=== PATIENT | female | born 1965 | race Caucasian/White ===

== ENCOUNTER 2023-04-10 07:43 | Outpatient (AMB) | payer MEDICAID, SELFPAY ==
--- NOTE | 2023-04-10 08:00 | A.OFFVIS_ITS ---
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 Nutrition Services Associate Name: Kt([id number]) Allergies No Known Allergies Allergy (Verified 04/10/23 08:04) HPI HPI Comments History of Present Illness Details 58 y/o female patient presents for new i n-person visit for sleep consultation. vice president of customer service Kt ID # [id number] utilized. Pt reports difficulty falling asleep and staying sleep. She snores loudly, wakes up gasping and has non rested sleep. She wakes up tired, fatigue all day. She gained about 60 lb over the last year. Sleep questionnaire: Have you ever been diagnosed with a sleep disorder? No. Have you ever had a sleep study in the past? No. Have you ever been treated for a sleep disorder? No. Do you take medications for a sleep disorder? No. Do you snore? Yes, loudly. Do you wake up gasping at night? Yes. Do you have episodes of apneas? Yes. If yes, are they witnessed? Yes, her mother witnessed. Do you have episodes of nocturnal chest pain or dyspnea? Yes, sometimes. Do you have difficulty initiating sleep? Yes. Do you have difficulty maintaining sleep? Yes. Do you wake up tired? Yes. Do you have headaches upon awakening? Yes, sometimes. Do you wake up with dry mouth or throat? Yes. Do you have GERD? Yes. Do you have nocturia? Just once. Do you have nocturnal leg cramps? No. Do you have symptoms of restless legs? Yes, tingling. Do you act out your dreams? Yes, sometimes yells. Sleep hygiene questionnaire: What is your usual sleep routine? Usual bedtime is at 10-11 pm; Usual wake up time is at 4:30 am. Do you take naps? No. Is your sleep environment cool, dark, and quiet? Yes. Do you exercise? No. Do you take caffeine or other stimulants? Yes, coffee and soda. Do you use electronics in bed? Yes. What is your work schedule? 6 -11:30 am. Hypersomnolence questionnaire: Do you have daytime tiredness or fatigue? Yes. Do you easily fall asleep when inactive? Yes. Have you ever had episodes of sudden weakness? No. Have you ever had episodes of sudden weakness associated with strong emotions? No. PFSH Social History Household Members: None Housing: Apartment Alcohol intake: never Patient Tobacco Use Status: Never used Tobacco Review of Systems Const All systems reviewed & are unremarkable except as noted in HPI and below ENT Reports Normal hearing present Neuro Reports Normal hearing present Physical Exam Vital Signs: Last Vital Signs Pulse 88 04/10/23 08:01 BP 130/82 04/10/23 08:01 Pulse Ox 95 04/10/23 08:01 Oxygen Delivery Method Room Air 04/10/23 08:01 BMI result Body Mass Index 39.0 Const General: cooperative and tired appearing Nutritional Appearance: obese Orientation/consciousness: patient oriented x3 Limitations: language barrier Neck Neck: Yes full ROM and Yes supple Resp Effort & Inspection: normal respiratory effort and able to speak in complete sentences Neuro General: patient oriented x3, gait normal and moves all extremities Cranial nerves: Yes Bilaterally intact EOM present, Yes Normal facial strength present, Yes Midline tongue present, Yes Normal hearing present, Yes Ability to bilaterally rotate head present and Yes Ability to bilaterally elevate shoulders present Cognition (Neuro): normal cognition Gait exam (Neuro): Normal gait present Motor exam (neuro): 5/5 motor strength present throughout, Pronator motor function not present and no tremor noted Psych Appearance: grossly normal Mental Status: mental status grossly normal Speech and movement: Normal speech and movement present Affect: normal affect Attitude: cooperative Assessment & Plan Assessment & Plan (1) Obese: Code(s): E66.9 - Obesity, unspecified (2) Excessive daytime sleepiness: Code(s): G47.19 - Other hypersomnia (3) Loud snoring: Code(s): R06.83 - Snoring Plan Pt is advised to undergo home sleep study to assess for sleep apnea. Will f/u with pt after study to discuss results and appropriate treatment options. Sleep hygiene education provided. Limit soda intake in the evening, and electronic use. Increase physical activity and wt reduction advised. Pt to call with any worsening concerns or questions. Orders: Orders RT home sleep study Today E66.9 - Obesity, unspecified, G47.19 - Other hypersomnia, R06.83 - Snoring Coding Level of Care Code New Pt Level 3 (38767) Diagnoses Obese E66.9 Excessive daytime sleepiness G47.19 Loud snoring R06.83
[2023-04-10 08:01] VITALS: BP 130/82; PULSE 88; O2SAT 95; BMI 39.0
== END 2023-04-10 08:33 | disposition home or self-care (01) ==
PROVIDERS: Visit Provider Nurse Practitioner Family
DX: E66.9 Obesity, unspecified (principal); G47.19 Other hypersomnia; R06.83 Snoring
CPT/HCPCS: 99203

== ENCOUNTER → 2023-04-10 07:43 | Outpatient (BNVA) | payer MEDICAID, SELFPAY | PROVIDERS: Visit Provider Nurse Practitioner Family | DX: G47.19 Other hypersomnia (principal); R06.83 Snoring; E66.9 Obesity, unspecified; Z68.39 Body mass index [BMI] 39.0-39.9, adult | CPT/HCPCS: 99212 ==

== ENCOUNTER → 2023-05-27 07:17 | Outpatient (BNV) | payer MEDICAID, SELFPAY | PROVIDERS: PCP Physician Assistant Medical; Visit Provider Psychiatry & Neurology Neurology | DX: G47.33 Obstructive sleep apnea (adult) (pediatric) (principal) | CPT/HCPCS: 95806 ==

== ENCOUNTER → 2023-05-27 13:02 | Outpatient (REF) | payer MEDICAID, SELFPAY | LOC: HO.SL 13:02 | PROVIDERS: PCP Physician Assistant Medical; Visit Provider Nurse Practitioner Family | DX: G47.33 Obstructive sleep apnea (adult) (pediatric) (principal); R06.83 Snoring; G47.19 Other hypersomnia; E66.9 Obesity, unspecified | CPT/HCPCS: 95806; 95811 ==

== ENCOUNTER → 2023-07-01 19:30 | Outpatient (REF) | payer MEDICAID, SELFPAY | LOC: HO.SL 19:30 | PROVIDERS: PCP Physician Assistant Medical; Visit Provider Nurse Practitioner Family | DX: G47.33 Obstructive sleep apnea (adult) (pediatric) (principal) | CPT/HCPCS: 95811 ==

== ENCOUNTER → 2023-07-01 22:59 | Outpatient (BNV) | payer MEDICAID, SELFPAY | PROVIDERS: PCP Physician Assistant Medical; Visit Provider Psychiatry & Neurology Neurology | DX: G47.33 Obstructive sleep apnea (adult) (pediatric) (principal) | CPT/HCPCS: 95811 ==

== ENCOUNTER 2023-09-08 10:55 | Outpatient (AMB) | payer MEDICAID, SELFPAY ==
--- NOTE | 2023-09-08 10:55 | MHC.OFFVIS ---
Vital Signs 09/08/23 10:56 Height 5 ft 2 in Weight 215 lb BMI 39.3 BP 154/82 H Blood Pressure Location Rt brachial Position Sitting Pulse 87 Pulse Source Pulse Oximeter Pulse Oximetry (%) 95 Oxygen Delivery Method Room Air Intake Visit Reasons: 4M PATRICK - CONF w/Chic. Location Intake Note: Patient presents for 4 month follow up. Allergies No Known Allergies Allergy (Verified 09/08/23 10:58) HPI Comments Details: 58 y/o female patient presents for follow up of sleep study. Certified watch train inspector Destini Harris helped for this visit. The home sleep study result was significant for a severe degree of sleep apnea. The AHI was 34/hr and oxygen satish was 75%. She underwent titration study. The CPAP compliance and therapy response (08/08/23-09/06/23) reviewed. She is on CPAP at [id number]. The usage days 80 % and the average usage hours 4 hrs 20 min. The residual AHI was 1.6/hr. Pt reports she sleeps well with CPAP, about 7 hrs, rested, and her daytime sleepiness has improved a lot. She uses nasal mask, but wants to try full face mask. [facility] Social History (Reviewed 09/08/23 @ 10:58 by Destini Harris COUNT INCLUDES THE [facility]) Household Members: None Housing: Apartment Alcohol intake: never Patient Tobacco Use Status: Never used Tobacco Review of Systems Const All systems reviewed & are unremarkable except as noted in HPI and below ENT Reports Normal hearing present Neuro Reports Normal hearing present Physical Exam Vital Signs: Last Vital Signs Pulse 87 09/08/23 10:56 BP 154/82 H 09/08/23 10:56 Pulse Ox 95 09/08/23 10:56 Oxygen Delivery Method Room Air 09/08/23 10:56 BMI result Body Mass Index 39.3 Const General: cooperative Nutritional Appearance: obese Orientation/consciousness: patient oriented x3 Limitations: language barrier Neck Neck: Yes full ROM and Yes supple Resp Effort & Inspection: normal respiratory effort and able to speak in complete sentences Neuro General: patient oriented x3 and gait normal Cranial nerves: Yes Bilaterally intact EOM present, Yes Normal facial strength present, Yes Midline tongue present, Yes Normal hearing present, Yes Ability to bilaterally rotate head present and Yes Ability to bilaterally elevate shoulders present Cognition (Neuro): normal cognition Gait exam (Neuro): Normal gait present Motor exam (neuro): 5/5 motor strength present throughout, Pronator motor function not present and no tremor noted Psych Appearance: grossly normal Mental Status: mental status grossly normal Speech and movement: Normal speech and movement present Affect: normal affect Attitude: cooperative Assessment & Plan Assessment & Plan (1) PATRICK (obstructive sleep apnea): Comment: Severe degree of sleep apnea. The AHI was 34/hr and oxygen satish was 75% Code(s): G47.33 - Obstructive sleep apnea (adult) (pediatric) Category: Medical Plan Advised patient to continue to use CPAP at [id number] as patient experiences good clinical effects, better quality sleep and daytime sleepiness has improved. Stressed compliance, use CPAP nightly and more than 4 hrs. Wt reduction advised. Coding Level of Care Code Est Pt Level 3 (61038) Diagnoses PATRICK (obstructive sleep apnea) G47.33
[2023-09-08 10:56] VITALS: BP 154/82; PULSE 87; O2SAT 95; BMI 39.3
== END 2023-09-08 11:25 | disposition home or self-care (01) ==
PROVIDERS: PCP Physician Assistant Medical; Visit Provider Nurse Practitioner Family
DX: G47.33 Obstructive sleep apnea (adult) (pediatric) (principal)
CPT/HCPCS: 99213

== ENCOUNTER → 2023-09-08 10:55 | Outpatient (BNVA) | payer MEDICAID, SELFPAY | PROVIDERS: PCP Physician Assistant Medical; Visit Provider Nurse Practitioner Family | DX: G47.33 Obstructive sleep apnea (adult) (pediatric) (principal) | CPT/HCPCS: 99212 ==

== ENCOUNTER 2024-03-29 12:52 | Outpatient (AMB) | payer MEDICAID, SELFPAY ==
--- NOTE | 2024-03-29 12:58 | MHC.OFFVIS ---
Vital Signs 03/29/24 13:00 Height 5 ft 2 in Weight 212 lb BMI 38.8 BP 136/74 Blood Pressure Location Rt brachial Position Sitting Intake Visit Reasons: 6 mnts f/u for PATRICK Intake Note: Patient presents for 6 month follow up Allergies No Known Allergies Allergy (Verified 03/29/24 13:01) Medication List - Last Reconciled 03/29/24 by Oriana Morel PA-C amlodipine 5 mg PO DAILY cholecalciferol (vitamin D3) 25 mcg PO DAILY lisinopril 20 mg PO DAILY HPI Comments Details: 59 y/o female patient presents for follow up of sleep study. Daughter is interpreting for her. The CPAP compliance and therapy response (12/30/2023- 03/28/2024). She is on CPAP at [id number]. The usage days 14% and the average usage hours 1 hrs 21 min. The residual AHI was 9.0. Pt reports she slept well with CPAP, about 7 hrs, rested, and her daytime sleepiness had improved a lot. She uses full face mask and liked the mask, but feels she is being suffocated because of the pressures. She just had r. knee surgery Jan 25 at [facility] and completed PT 2023. Now she is not able to use the CPAP but only 2 - 3 hours a night, as she is on pain medications through the night. Tramadol 50mg PO Daily Oxycodone 5mg PO Bedtime Tylenol 500mg PO TID She denies headaches, her mood is good, diet is good. She cleans the mask, changes out filters, uses distilled water in the reservoir as needed. Pressures are too high for her and would like to have a mask fitting. Discussed compliance due to hypertension and quality of sleep. [facility] Surgical History (Updated 03/29/24 @ 13:01 by YOANDY Lugo) H/O knee surgery Social History Household Members: None Housing: Apartment Alcohol intake: never Patient Tobacco Use Status: Never used Tobacco Physical Exam Vital Signs: Last Vital Signs BP 136/74 03/29/24 13:00 BMI result Body Mass Index 38.8 Assessment & Plan Assessment & Plan (1) PATRICK (obstructive sleep apnea): Comment: Severe degree of sleep apnea. The AHI was 34/hr and oxygen satish was 75% Code(s): G47.33 - Obstructive sleep apnea (adult) (pediatric) Category: Medical Plan Will send patient for mask fitting as patient continues to have trouble with mask. Coding Level of Care Code Est Pt Level 3 (70206) Diagnoses PATRICK (obstructive sleep apnea) G47.33
[2024-03-29 13:00] VITALS: BP 136/74; BMI 38.8
== END 2024-03-29 13:39 | disposition home or self-care (01) ==
PROVIDERS: PCP Physician Assistant Medical; Visit Provider Physician Assistant Medical
DX: G47.33 Obstructive sleep apnea (adult) (pediatric) (principal)
CPT/HCPCS: 99213

== ENCOUNTER → 2024-03-29 12:52 | Outpatient (BNVA) | payer MEDICAID, SELFPAY | PROVIDERS: PCP Physician Assistant Medical; Visit Provider Physician Assistant Medical | DX: G47.33 Obstructive sleep apnea (adult) (pediatric) (principal) | CPT/HCPCS: 99212 ==

== ENCOUNTER 2024-07-01 09:46 | Outpatient (AMB) | payer MEDICAID, SELFPAY ==
--- NOTE | 2024-07-01 09:56 | MHC.OFFVIS ---
Vital Signs 07/01/24 09:57 Height 5 ft 2 in Weight 217 lb BMI 39.7 BP 152/78 H Blood Pressure Location Lt brachial Position Sitting Pulse 87 Pulse Source Pulse Oximeter Pulse Oximetry (%) 95 Oxygen Delivery Method Room Air Intake Visit Reasons: Follow Up 2 mo Consumer Lending Manager Required: Yes Consumer Lending Manager Name: Consumer Lending Manager tablet used Accompanied by: Self / Same As Patient Allergies No Known Allergies Allergy (Verified 07/01/24 09:59) HPI Comments Details: 59 y/o female patient presents for follow up of sleep study. Consumer Lending Manager on Ipad The CPAP compliance and therapy response (03/21/2025- 06/25/2024). She is on CPAP at [id number]. The usage days 9 and the average usage hours 1 hrs 26 min. Leaks median 6.0cmH20 and AHI is 5.3 Pt reports she slept well with CPAP, about 7 hrs, rested, and her daytime sleepiness had improved a lot. She uses full face mask and liked the mask, but feels she is being suffocated because of the pressures. She now has the nose pillows and would like to go to a smaller face mask. She denies headaches, her mood is good, diet is good. She cleans the mask daily, changes out filters, uses distilled water in the reservoir as needed. Pressures are too high for her and would like to have a mask fitting. Discussed compliance due to hypertension and the need for good quality of sleep nightly. Her BP is elevated today to 152/78, on two medications Amlodipine 5mg and Lisinopril 20mg. Since her knee surgery in Mar, 2024, she has been having trouble with the CPAP machine as she is getting up several times a night for the bathroom. Says her mood is good, and would like to address weight at next appt as she is always tired. [facility] Surgical History H/O knee surgery Social History Household Members: None Housing: Apartment Alcohol intake: never Patient Tobacco Use Status: Never used Tobacco Review of Systems Const All systems reviewed & are unremarkable except as noted in HPI and below ENT Reports Normal hearing present Neuro Reports Normal hearing present Physical Exam Vital Signs: Last Vital Signs Pulse 87 07/01/24 09:57 BP 152/78 H 07/01/24 09:57 Pulse Ox 95 07/01/24 09:57 Oxygen Delivery Method Room Air 07/01/24 09:57 BMI result Body Mass Index 39.7 Const General: cooperative Nutritional Appearance: obese Orientation/consciousness: patient oriented x3 Limitations: language barrier Neck Neck: Yes full ROM and Yes supple Resp Effort & Inspection: normal respiratory effort and able to speak in complete sentences Neuro General: patient oriented x3 and gait normal Cranial nerves: Yes Bilaterally intact EOM present, Yes Normal facial strength present, Yes Midline tongue present, Yes Normal hearing present, Yes Ability to bilaterally rotate head present and Yes Ability to bilaterally elevate shoulders present Cognition (Neuro): normal cognition Gait exam (Neuro): Normal gait present Motor exam (neuro): 5/5 motor strength present throughout, Pronator motor function not present and no tremor noted Psych Appearance: grossly normal Mental Status: mental status grossly normal Speech and movement: Normal speech and movement present Affect: normal affect Attitude: cooperative Results Reviewed Results Reviewed: The CPAP compliance and therapy response (03/21/2025- 06/25/2024). She is on CPAP at [id number]. The usage days 9 and the average usage hours 1 hrs 26 min. Leaks median 6.0cmH20 and AHI is 5.3 Assessment & Plan Assessment & Plan (1) HTN (hypertension): Code(s): I10 - Essential (primary) hypertension Category: Medical Qualifiers: Hypertension type: primary hypertension Qualified Code(s): I10 - Essential (primary) hypertension (2) PATRICK (obstructive sleep apnea): Comment: Severe degree of sleep apnea. The AHI was 34/hr and oxygen satish was 75% Code(s): G47.33 - Obstructive sleep apnea (adult) (pediatric) Category: Medical Plan PATRICK on CPAP Will send her for a nose mask fitting as patient continues to have trouble with mask. Fatigue will refer her to weight management next visit if patient is amenable. Medications: New [Blood pressure monitor] As directed 1 ea 0RF I10 - Essential (primary) hypertension [Blood Pressure cuff] As directed 1 ea 0RF PATRICK G47.33 - Obstructive sleep apnea (adult) (pediatric), I10 - Essential (primary) hypertension Patient Instructions: Emphasized strict compliance to CPAP use must sleep with mask 4-6 hours at a minimum per night as patient has HTN. The #1 modifiable RF for CV events is HTN. Diet and Exercise along with taking her BP meds on time is explained. Coding Level of Care Code Est Pt Level 3 (63808) Diagnoses Primary hypertension I10 Hypertension type: primary hypertension PATRICK (obstructive sleep apnea) G47.33 Time Spent (min) 30
[2024-07-01 09:57] VITALS: BP 152/78; PULSE 87; O2SAT 95; BMI 39.7
--- OUTSIDE RECORDS SUMMARY | 2024-07-01 10:27 | XMS_ITS | Clinical Summary ---
Author Organization [facility] Address [address] [place] [phone] Phone Care Team Providers Care Aoc Operations Intelligence Officer Name Role Phone Raf Pedroza Primary Care Provider [phone] Allergies No known active allergies Medications acetaminophen (TYLENOL) 325 mg tablet Take 1 tablet (325 mg total) by mouth every 6 (six) hours if needed for mild pain. Active amLODIPine (NORVASC) 5 mg tablet Take 1 tablet (5 mg total) by mouth 1 (one) time each day. Active aspirin 325 mg tablet Take 1 tablet (325 mg total) by mouth 2 (two) times a day. Active docusate sodium (COLACE) 100 mg capsule Take 1 capsule (100 mg total) by mouth 2 (two) times a day. Active lisinopriL (PRINIVIL,ZESTR IL) 20 mg tablet Take 1 tablet (20 mg total) by mouth 1 (one) time each day. Active oxyCODONE (ROXICODONE) 5 mg immediate release tablet 1 tablet (5 mg total) every 4 (four) hours if needed for severe pain. Max Daily Amount: 30 mg Active pantoprazole (PROTONIX) 40 mg EC tablet Take 1 tablet (40 mg total) by mouth 1 (one) time each day before breakfast. Do not crush, chew, or split. Active traMADoL (ULTRAM) 50 mg tablet Take 1 tablet (50 mg total) by mouth every 6 (six) hours if needed for severe pain. Max Daily Amount: 200 mg Active cholecalciferol (VITAMIN D-3) 25 mcg (1,000 unit) tablet Take 1 tablet (1,000 Units total) by mouth 1 (one) time each day. Active meloxicam (MOBIC) 15 mg tablet Take 1 tablet (15 mg total) by mouth 1 (one) time each day. Active Social History Tobacco Use Types Packs/Day Years Used Date Smoking Tobacco: Never Assessed Comments Unknown Sex and Gender Information Value Date Recorded Sex Assigned at Female 06/29/2024 11:14 AM EST Legal Sex Female 3:51 AM EST Gender Identity Female 06/29/2024 11:14 AM EST Sexual Orientation Straight 06/29/2024 11 :14 AM EST Plan of Treatment Upcoming Encounters Date Type Department Care Team (Late st Contact Info) Description 07/11/2024 10:30 AM EST Appointment [facility] [address] [phone] Health Maintenance Due Date Last Done Comments DTaP,Tdap,and Td Vaccines (1 - Tdap) 1986 Hepatitis B Vaccines (1 of 3 - 19+ 3-dose series) 1986 Cervical Cancer Screening: P ap Smear 01/07/1988 Pneumococcal Vaccine: 50+ Years (1 of 1 - PCV) 2017 Zoster Vaccines (1 of 2) 2017 Colorectal Cancer Screening: Colonoscopy 04/13/2022 Depression Screening 04/13/2022 HIV Screening 04/13/2022 Hepatitis C Screening 04/13/2022 Social Influencers of Health Screening 04/13/2022 COVID-19 Vaccine ( - 2023-2 5 season) 2024 Influenza Vaccine (#1) 2024 Breast Cancer Screening 03/05/2025 03/05/20, 01/02/2022, 12/08/2018 HIB Vaccines Aged Out No longer eligi ble based on patient's age to complete this topic HPV Vaccines Aged Out No longer eligi ble based on patient's age to complete this topic Hepatitis A Vaccines Aged Out No long er eligible based on patient's age to complete this topic IPV Vaccines Aged Out No longer eligi ble based on patient's age to complete this topic MMR Vaccines Aged Out No longer eligi ble based on patient's age to complete this topic Meningococcal ACWY Vaccine Aged Out N o longer eligible based on patient's age to complete this topic Meningococcal B Vacine Aged Out No lo nger eligible based on patient's age to complete this topic Pneumococcal Vaccine: Pediatrics (0 to 5 Years) and At-Risk Patients (6 to 64 Years) Aged Out No longer eligible b ased on patient's age to complete this topic RSV Immunization Patients Under 20 months Aged Out No longer eligible b ased on patient's age to complete this topic Varicella Vaccines Aged Out No longer eligible based on patient's age to complete this topic Procedures Procedure Name Priority Date/Time Associated Diagnosis Comments [facility] SCREENING DIGITAL Routine 03/05/2023 1:54 PM EDT Encounter for screening mammogram for malignant neoplasm of breast from Last 3 Months or Most Recently Relevant to Health Maintenance Results * [facility] SCREENING DIGITAL (03/05/2023 1:54 PM EDT) Anatomical Region Laterality Modality Mammography 03/05/2023 10:4 3 AM EDT Narrative 03/05/2023 1:54 PM EDT [facility] Diagnostic Imaging Department [address] [place] [address] Patient: ??MISSY ABDULLAHI ?/Age/Sex: 1965 - 58 - F Unit#: ??[id number] ? Location/Status: ??SPDIMAM/REG CLI ? Mnemonic/Ordering Site: ??DIGSC/SPMAM Ordering Physician: ??TATO AGUILAR MD [facility] Screening Digital - 03/05/23 - 110 Report Status:Signed EXAM: [facility] Screening Digital EXAM DATE AND TIME: 03/05/2023 11:10 AM HISTORY: ??Screening. COMPARISON: ??01/02/22, 12/08/18, 07/01/17 TECHNIQUE: Bilateral digital breast tomosynthesis was performed in the CC and MLO projections. Computer aided detection with [employer] 3D 3.1 was employed. TISSUE DENSITY: b. There are scattered areas of fibroglandular density. FINDINGS: No suspicious masses, grouped microcalcifications, or areas of architectural distortion are seen. A 13 mm oval skin lesion is again seen on the upper outer left breast. Vascular calcification is present. IMPRESSION: Stable mammographic appearance of the breasts. ??No evidence of malignancy is seen. A negative mammogram in the presence of a clinically suspicious palpable abnormality does not preclude the possibility of malignancy or alter the indications for biopsy. BI-RADS: ??Category 2: Benign RECOMMENDATION(S): 1: Routine screening mammogram BILATERAL in 1 year. Dictating Physician: ??TIARA BELLO MD Electronically Signed by: ??TIARA BELLO MD Dic Date/Time: ??03/05/23 1353 Sign date/Time: ??03/05/23 1354 Procedure Note Tiara Bello MD - 06/16/2023 [facility] Diagnostic Imaging Department [address] [place] [address] Patient: MISSY ABDULLAHI Adam OsborneB./Age/Sex: 1965 - 58 - F Unit#: [id number] Location/Status: [facility] Mnemonic/Ordering Site: [facility] Ordering Physician: TATO AGUILAR MD [facility] Screening Digital - 03/05/23 - 1109 Report Status:Signed EXAM: [facility] Screening Digital EXAM DATE AND TIME: 03/05/2023 11:10 AM HISTORY: Screening. COMPARISON: 01/02/22, 12/08/18, 07/01/17 TECHNIQUE: Bilateral digital breast tomosynthesis was performed in the CCand MLO projections. Computer aided detection with [employer] 3D 3.1was employed. TISSUE DENSITY: b. There are scattered areas of fibroglandular density. FINDINGS: No suspicious masses, grouped microcalcifications, or areas ofarchitectural distortion are seen. A 13 mm oval skin lesion is again seen on the upperouter left breast. Vascular calcification is present. IMPRESSION: Stable mammographic appearance of the breasts. No evidence of malignancyis seen. A negative mammogram in the presence of a clinically suspicious palpable abnormality does not preclude the possibility of malignancy or alter the indications for biopsy. BI-RADS: Category 2: Benign RECOMMENDATION(S): 1: Routine screening mammogram BILATERAL in 1 year. Dictating Physician: TIARA BELLO MD Electronically Signed by: TIARA BELLO MD Dic Date/Time: 03/05/23 1353 Sign date/Time: 03/05/23 135 Tato Aguilar MD IMG BI PROCEDURES Final Result from Last 3 Months or Most Recently Relevant to Health Maintenance Insurance MEDICAID - [place] Care Teams Aoc Operations Intelligence Officer Relationship Specialty Start Date End Date Raf Pedroza PA [address] [place] [phone] PCP - General Physician Cover Marker 03/18/24
--- OUTSIDE RECORDS SUMMARY | 2024-07-01 10:27 | XMS_ITS | Clinical Summary ---
Author Organization [facility] Address [address] [place] [address] Care Team Providers Care Lead Based Paint Technician Name Role Phone Ludwin Pro PA-C Primary Care Provider [phone] Source Comments PLEASE NOTE, if this patient is a minor, it may be UNLAWFUL to discuss sensitive information that is contained in these records (such as FAMILY PLANNING, MENTAL HEALTH or SUBSTANCE ABUSE) with the minor patient's parent or other person without the patient's specific authorization.[facility] Allergies No known active allergies Medications blood pressure test kit-mediumIndicati ons:Essential hypertension Check BP daily Diag: I10 99 lifetime 1 Kit 09/29/19 20 Active MISCELLANEOUS MEDICAL SUPPLY MISCIndications:Pr imary osteoarthritis of both knees by miscellaneous route once daily Dx: OA of knees, gait instability CAROL: 99 Supply: Tripod cane. 1 Each 06/04/19 24 Active meloxicam (MOBIC) 15 mg tablet Take 15 mg by mouth once daily 10/29/19 24 Active cholecalciferol, vitamin D3, 25 mcg (1,000 unit) capsuleIndications :Vitamin D deficiency Take 1 Capsule by mouth once daily 90 Capsule 1 11/05/19 24 Active oxyCODONE (ROXICODONE) 5 mg tablet Take 5 mg by mouth every 4 (four) hours as needed for pain 01/27/20 24 Active docusate sodium (COLACE) 100 mg capsule Take 100 mg by mouth 2 (two) times daily 01/27/20 24 Active pantoprazole (PROTONIX) 40 mg EC tablet Take 40 mg by mouth once daily 01/27/20 24 Active aspirin 325 mg EC tablet Take 325 mg by mouth 2 (two) times daily 01/27/20 24 Active acetaminophen (TYLENOL) 325 mg tablet Take 650 mg by mouth every 6 (six) hours as needed 01/27/20 24 Active traMADoL (ULTRAM) 50 mg tablet Take 50 mg by mouth every 6 (six) hours as needed for pain 01/27/20 24 Active amLODIPine (NORVASC) 5 mg tabletIndications: Essential hypertension Take 1 Tablet by mouth once daily 90 Tablet 1 03/14/20 24 Active lisinopriL 20 mg tabletIndications: Essential hypertension Take 1 Tablet by mouth once daily 90 Tablet 1 03/14/20 24 Active Active Problems Problem Noted Date Diagnosed Date Primary osteoarthritis of right knee 02/13/2023 Overview (02/13/2023): Referred to [facility] Vitamin D deficiency 08/09/2018 Essential hypertension 06/03/2018 Cervical cancer screening 11/30/2017 Overview (11/30/2017): 11/16/2017 [facility] Chlamydia/Gonorrhea: Negative Right shoulder tendinitis 11/12/2017 Colon cancer screening 07/29/2017 Overview (07/29/2017): 07/27/2017 [facility]- Colonoscopy Hemorrhoids found on perianal exam. Perianal skin tags found on perianal exam. Diverticulosis in the sigmoid colon and in the left colon. The examination was otherwise normal. No specimens collected. Recommended: Repeat in 10 years. Breast cancer screening 07/03/2017 Overview (07/07/2017): 07/01/2017 [facility]- Mammogram Screening Superficial oval mass within the axillary tail region of the left breast. Further assessment if this area with ultrasound is recommended. No specific mammographic evidence of breast malignancy on the right. Lack of a mammographic finding in the presence of a clinically suspicious palpable abnormality does not preclude the possibility of malignancy or alter the indications for biopsy. BI-RADS- Category 0 - incomplete needs additional imaging evaluation. 07/03/2017 [facility]- US Breast Findings consistent with sebaceous cyst in the 2:00 axis of the left breast 10 cm the nipple corresponding to the mammographic area of concern. BIRADS Category 2 Benign finding Lack of an imaging finding does not preclude the possibility of malignancy. Lack of an imaging correlate should not deter or delay biopsy of any clinically suspicious palpable finding. Chronic pain of left knee 05/26/2017 Resolved Problems Problem Noted Date Diagnosed Date Resolved Date Depression 05/26/2017 02/13/2023 Encounters Date Type Department Care Team Description 06/20/2024 3:00 PM EST Office Visit [address] [address] Ludwin Pro PA-C Cervical smear, as part of routine gynecological examination (Primary Dx); Routine Papanicolaou smear; Screening mammogram for breast cancer from Last 3 Months Immunizations Name Administration Dates Next Due Flu, Preservative Free 03/26/2022,05/26/2017 MODERNA COVID-19 VACCINE BIV ALENT, BLUE CAP, 6M+ 06/26/2022 Moderna COVID-19 Vaccine, re d cap blue label, 12+ Primary Series 07/26/2021,09/01/2020,08/03/2020 PPD 09/01/2018 TDAP 06/10/2017 ZOSTER VACCINE, RECOMBINANT (SHINGRIX) ,10/17/2020 Family History Relation Name Status Comments Father addicted to drugs Mother Alive Social History Tobacco Use Types Packs/Day Years Used Date Smoking Tobacco: Never Smokeless Tobacco: Never Tobacco Cessation:Counseling Given: No Alcohol Use Standard Drinks/Week Comments No 0 (1 standard drink = 0.6 oz pur e alcohol) Social Connections Answer Date Recorded Connectedness 1 06/20/2024 Financial Resource Strain Answer Date R ecorded Financial Resource Strain 1 2024 Stress Answer Date Recorded Stress 1 06/20/2024 Physical Activity Answer Date Recorded Physical Activity 0 01/03/2019 Food Insecurity Answer Date Recorded Food 1 06/20/2024 Transportation Needs Answer Date Record ed Transportation 1 06/20/2024 Housing Stability Answer Date Recorded Housing 1 06/20/2024 Safety and Environment Answer Date Zia rded Safety 1 11/05/2023 Utilities Answer Date Recorded Utilities 1 06/20/2024 Employment Answer Date Recorded Stress 0 12/19/2020 Comments No Sex and Gender Information Value Date Recorded Sex Assigned at Female 05/26/2017 12:42 PM PST Legal Sex Female 8:50 AM PST Gender Identity Female 05/26/2017 12:42 PM PST Sexual Orientation Straight 08/02/2018 6: 13 AM PDT Last Filed Vital Signs Vital Sign Reading Time Taken Comments Blood Pressure 138/80 03/14/2024 8:52 AM EST Pulse 88 03/14/2024 8:52 AM EST Temperature 36.9 ??C (98.4 ??F) 11/05/2023 3:43 PM ED T Respiratory Rate 16 03/14/2024 8:52 AM EST Oxygen Saturation 97% 03/14/2024 8:52 AM EST Inhaled Oxygen Concentration - - Weight 100.7 kg (222 lb) 06/20/2024 3:07 PM EST Height 149.9 cm (4' 11 ) 06/20/2024 3:07 PM EST Body Mass Index 44.84 06/20/2024 3:07 PM EST Plan of Treatment Health Maintenance Due Date Last Done Comments Dental Prophy 1965 HPV Screening 1967 Urine Drug Screen [address] CT Colonography 01/07/2012 Colonoscopy 01/07/2012 Fecal DNA 01/07/2012 Flexible Sigmoidoscopy 01/07/2012 Colorectal Cancer Screening 07/27/2018 FIT/gFOBT 07/27/2018 07/27/2017 (Lisa jolly by Outside Provider) Breast Cancer Screening (Mammogram) 03/05/2024 03/05/2023, 03/05/2023, 01/02/2022, Additional history exists [id number] ( season) 2024 06/26/2022, 07/26/2021, 09/01/2020, Additional history exists Postponed from 01/10/2024 (Patient postponement) Dental BW 11/03/2024 11/02/2023 Dental Examination 11/03/2024 11/02/2023 Dental Perio Charting 11/03/2024 11/02/2023 Tobacco Screening 11/04/2024 11/05/2023 Annual Preventive Care Visit 06/20/2025 06/20/2024, 03/14/2024, 02/13/2023, Additional history exists Diabetes Screening 03/15/2027 03/15/2024, 0 11/19/2023, 06/12/2023, Additional history exists Lipid Screening 03/15/2027 03/15/2024, 0705/2023, 06/12/2023, Additional history exists Imm-DTaP/Tdap/Td (2 - Td or Tdap) 06/10/2027 06/10/2017 Pap Smear 06/20/2027 06/20/2024, 07/0 01/2018, 11/16/2017 Dental FMX/Pano 12/31/2028 12/30/2023, 11/02/2023 Cervical Cancer Screening 06/20/2029 Pap + HPV 06/20/2029 06/20/2024, 11/16/2017 HIV Screening Completed 02/07/2020, 08/04/2018 Hepatitis C Screening Completed 02/07/2020 Imm-Zoster, Recombinant Completed 12/19/2021, 10/17 Imm-Influenza Discontinued 03/26/2022, 05/26/2017 Alcohol and Drug Screen Completed 06/20/19, 11/05/2023, 06/04/2023, Additional history exists Depression Annual Screen Completed 06/20/2024 Cervical Ablation/Cold-Knife Conization Discontinued Cervical Cryotherapy Discontinued Colposcopy Discontinued Endometrial Biopsy Discontinued Excision/Leep Discontinued HPV Genotyping Discontinued Vaginal Pap Discontinued Vulvoscopy Discontinued Goals Goal Patient Goal Type Associated Problems Recent Progress Patient-Stated? Author Blood Pressure < 140/90 Blood Pressure Essential hypertension 138/80(2023 8:52 AM EST) No Tamiko Mckenzie, PharmD Procedures Procedure Name Priority Date/Time Associated Diagnosis Comments THIN PREP IMAGE PAP + HPV RNA E6/E7 W/RFLX HPV 16, 18/45 Routine 06/20/2024 3:08 PM EST Cervical smear, as part of routine gynecological examination Routine Papanicolaou smear COMPREHENSIVE METABOLIC PANEL Routine 03/15/2024 11:32 AM EST Routine general medical examination at a health care facility Essential hypertension LIPIDS W RFLX TO DIRECT LDL Routine 03/15/2024 11:32 AM EST Routine general medical examination at a health care facility PANORAMIC RADIOGRAPHIC IMAGE Routine 12/30/2023 3:00 PM EDT Periodontal diseases INTRAORAL - COMP SERIES OF RADIOGRAPHIC IMAGES Routine 11/02/2023 1:00 PM EDT Encounter for dental examination COMP ORAL EVALUATION - NEW/ESTABLISHED PATIENT Routine 11/02/2023 1:00 PM EDT Encounter for dental examination REFERRAL FOR MAMMOGRAM Routine 03/05/2023 3:00 AM EDT Health care maintenance Screening mammogram for breast cancer ANTIBODY HIV-1&HIV-2 SINGLE RESULT Routine 02/07/2020 12:12 PM EDT Encounter for general adult medical examination w/o abnormal findings HEPATITIS A,B,C PANEL Routine 02/07/2020 12:12 PM EDT Encounter for general adult medical examination w/o abnormal findings from Last 3 Months or Most Recently Relevant to Health Maintenance Results * THIN PREP IMAGE PAP + HPV RNA E6/E7 W/RFLX HPV 16, 18/45 (06/20/2024 3:08 PM EST) CLINICAL INFORMATION See Note [facility] Comment:POSTMENOPAUSAL~ROUTI NE EXAM LMP See Note [facility] Comment:[id number] PREV. PAP [facility] PREV. BX See Note [facility] Comment:NONE GIVEN SOURCE See Note [facility] Comment:Cervix STATEMENT OF ADEQUACY See Note [facility] Comment: Satisfactory for evaluation. Endocervical/transformation zone component present. Partially obscuring blood INTERPRETATION/RESU LT See Note [facility] Comment: Cytology Results: Negative for intraepithelial lesion or malignancy. COMMENT See Note [facility] Comment: This Pap test has been evaluated with computer assisted technology. FAMILY LAW PARALEGAL See Note [facility] Comment: RMM, CT(ASCP) CT screening location: [address] ??[address] COMMENT [facility] HPV MRNA E6/E7 Not Detected Not Detected [facility] Comment: Methodology: Proprietary Trader-Mediated Amplification This assay detects E6/E7 viral messenger RNA (mRNA) from 14 high-risk HPV types (16,18,31,33,35,39,45,51,52,56,58,59,66,68). Cervical sources are required for HPV testing. If a vaginal source from a patient who has had a total hysterectomy with removal of cervix was submitted, please contact the testing laboratory for alternative testing options. For additional information, please refer to http://Tweetflow.24PageBooks/faq/UBV611y6 (This link if provided for information/ educational purposes only.) Swab Endocervical structure / Unknown 06/20/2024 3:08 PM EST 06/21/2024 4:44 AM EST Narrative [employer] [facility] - 06/22/2024 5:54 PM EST EXPLANATORY NOTE: The Pap is a screening test for cervical cancer. It is not a diagnostic test and is subject to false negative and false positive results. It is most reliable when a satisfactory sample, regularly obtained, is submitted with relevant clinical findings and history, and when the Pap result is evaluated along with historic and current clinical information. Ludwin Pro PA-C LAB - NO BLOOD DRAW Final Re sult [facility] [address] [address], [facility] [address] [address] * (ABNORMAL) LIPIDS W RFLX TO DIRECT LDL (03/15/2024 11:32 AM EST) CHOLESTEROL, TOTAL 181 <200 mg/dL [facility] HDL CHOLESTEROL 39(L) > OR = 50 mg/dL [facility] TRIGLYCERIDES 156(H) <150 mg/dL [facility] LDL-CHOLESTEROL 115(H) 99 mg/dL (calc) [facility] Comment: Reference range: <100 Desirable range <100 mg/dL for primary prevention; ?? <70 mg/dL for patients with CHD or diabetic patients with > or = 2 CHD risk factors. LDL-C is now calculated using the Andreina calculation, which is a validated novel method providing better accuracy than the Friedewald equation in the estimation of LDL-C. Riccardo EMANUEL et al. MARTINE. 2013;310(19): 8154-5163 (http://education.[place]/faq/ZMG141) CHOL/HDLC RATIO 4.6 <5.0 (calc) [facility] NON-HDL CHOLESTEROL 142(H) <130 mg/dL (calc) [facility] Comment: For patients with diabetes plus 1 major ASCVD risk factor, treating to a non-HDL-C goal of <100 mg/dL (LDL-C of <70 mg/dL) is considered a therapeutic option. Blood Blood / Unknown 03/15/2024 1 1:32 AM EST 03/15/2024 11:33 AM EST [facility] - BLOOD DRAW Final Resul t [facility] [address] [address], [facility] [address] [place] [address] * COMPREHENSIVE METABOLIC PANEL (03/15/2024 11:32 AM EST) GLUCOSE 94 65 - 99 mg/dL [facility] Comment: ?Fasting reference interval UREA NITROGEN (BUN) 17 7 - 25 mg/dL [facility] CREATININE (blood) 0.64 0.50 - 1.03 mg/dL [facility] EGFR 103 > OR = 60 mL/min/1. 73m2 [facility] BUN/CREATININE RATIO SEE NOTE: [facility] Comment: ?? Not Reported: BUN and Creatinine are within ?? reference range. ? SODIUM 139 135 - 146 mmol/L [facility] POTASSIUM 4.5 3.5 - 5.3 mmol/L [facility] CHLORIDE 105 98 - 110 mmol/L [facility] CARBON DIOXIDE 29 20 - 32 mmol/L [facility] CALCIUM 9.3 8.6 - 10.4 mg/dL [facility] PROTEIN, TOTAL 7.8 6.1 - 8.1 g/dL [facility] ALBUMIN 4.3 3.6 - 5.1 g/dL [facility] GLOBULIN 3.5 1.9 - 3.7 g/dL (calc) [facility] ALBUMIN/GLOBULI N RATIO 1.2 1.0 - 2.5 (calc) [facility] BILIRUBIN, TOTAL 0.5 0.2 - 1.2 mg/dL [facility] ALKALINE PHOSPHATASE 102 37 - 153 U/L [facility] AST 11 10 - 35 U/L [facility] ALT 10 6 - 29 U/L [facility] Blood Blood / Unknown 03/15/2024 1 1:32 AM EST 03/15/2024 11:33 AM EST Rubens Swenson PANTRY WORKER LAB - BLOOD DRAW Edited Resu lt - Final [facility] [address] [address], [employer] [facility] [address] [place] [address] * REFERRAL FOR MAMMOGRAM (03/05/2023 3:00 AM EDT) 03/05/2023 3:00 AM EDT Anjel Aguilar MD IMG RFL MAMMO Edited Result - Final * (ABNORMAL) HEPATITIS A,B,C PANEL (02/07/2020 12:12 PM EDT) HEPATITIS B SURFACE ANTIBODY POSITIVE(A) NEGATIVE [facility] HEPATITIS B SURFACE ANTIGEN NEGATIVE NEGATIVE [facility] Comment: Over the counter supplements containing high doses of biotin may interfere with this assay. ??If interference is suspected, patients shoud be retested after refraining from biotin supplements for 72 hours. HEPATITIS C VIRUS DIAGNOSTIC NEGATIVE NEGATIVE [facility] HEPATITIS A ANTIBODY TOTAL NEGATIVE NEGATIVE [facility] Comment: Over the counter supplements containing high doses of biotin may interfere with this assay. ??If interference is suspected, patients shoud be retested after refraining from biotin supplements for 72 hours. HEPATITIS B CORE ANTIBODY NEGATIVE NEGATIVE [facility] Blood Blood / Unknown 02/07/2020 1 2:12 PM EDT 02/07/2020 3:38 PM EDT Narrative [facility] - 02/07/2020 5:12 PM EDT [employer], a member of [address] [address] Public Health Professor - Georgette Kowalski MD PT ID [id number] ORD# [id number] Gladys AGARWAL LAB - BLOOD DRAW Edited Res ult - Final [facility] [address] [place] [address], [place] [phone] * HIV-1 & HIV-2 ANTIBODIES (02/07/2020 12:12 PM EDT) [facility] HIV 1 AND 2 ANTIBODY SCREEN NEGATIVE NEGATIVE [facility] Comment: This assay is a 4th generation assay allowing for earlier detection of HIV infection by detecting the presence of the HIV-1 p24 antigen as well as the traditional antibodies to HIV type 1 (including group O) and type 2. ??Use of a 4th generation assay is the current CDC recommendation for HIV screening. Blood Blood / Unknown 02/07/2020 1 2:12 PM EDT 02/07/2020 3:38 PM EDT Narrative [facility] - 02/07/2020 5:42 PM EDT [employer], a member of [address] [address] Public Health Professor - Georgette Kowalski MD PT ID [id number] ORD# [id number] Gladys AGARWAL LAB - BLOOD DRAW Final Resu lt Performing Organization Address City/[facility]/ZIP Co de Phone Number [address] [address], [place] [phone] from Last 3 Months or Most Recently Relevant to Health Maintenance Insurance [id number] [place] Member Subscriber Plan / Payer (Ef fective 2023-Present) Name:Missy Bean Relation to Subscriber:Self Name:Missy Bean Payer ID:[id number] Group ID:Not on file Type:Medicaid Address: [place] [id number] [facility] Care Teams Lead Based Paint Technician Relationship Specialty Start Date End Date Ludwin Pro PA-C [address] [place] [address] PCP - General FAMILY MEDICINEESTEFANY 01/19/20
--- OUTSIDE RECORDS SUMMARY | 2024-07-01 10:27 | XMS_ITS | Encounter Summary ---
Author Organization [facility] Address [address] [place] [address] Care Team Providers Care Geotechnician Name Role Phone Ludwin Pro PA-C Primary Care Provider + [phone] Reason for Referral * Radiology Services (Routine) - Authorized Specialty Diagnoses / Procedures Referred By Matias t Referred To Contact Diagnoses Screening mammogram for breast cancer Procedures REFERRAL FOR MAMMOGRAM Ludwin Pro PA-C [address] [place] [address] Phone: tel: fax: OTHER Referral ID Status Reason Start Date Expiration Date Visits Requested Visits Authorized [id number] Authorized Continuity of Care 06/20/2024 08/19/2024 1 1 Reason for Visit * Reason Comments PAP Smear Pap smear Encounter Details Date Type Department Care Team (Latest Contact Info) Description 06/20/2024 3:00 PM EST Office Visit [address] [address] Ludwin Pro PA-C [address] [place] [address] Cervical smear, as part of routine gynecological examination (Primary Dx); Routine Papanicolaou smear; Screening mammogram for breast cancer Social History Tobacco Use Types Packs/Day Years [...] Orientation Straight 08/02/2018 6: 13 AM PDT documented as of this encounter Last Filed Vital Signs Vital Sign Reading Time Taken Comments Blood Pressure - - Pulse - - Temperature - - Respiratory Rate - - Oxygen Saturation - - Inhaled Oxygen Concentration - - Weight 100.7 kg (222 lb) 06/20/2024 3:07 PM EST Height 149.9 cm (4' 11 ) 06/20/2024 3:07 PM EST Body Mass Index 44.84 06/20/2024 3:07 PM EST documented in this encounter Progress Notes * Ludwin Pro PA-C - 06/20/2024 3:04 PM EST Missy Bean is a 59 year old female here for PAP. Last menstrual period was Patient's last menstrual period was 01/25/2019 (approximate).. Sexual hx: Social History Substance and Sexual Activity Sexual Activity Not Currently Past STD hx: none. Current STD sx's: none. Would like testing? No history: Obstetric History T0 P0 TAB0 SAB0 E0 M0 L0 Current contraception: none . Concerns with contraception: none. Last pap smear: Last Pap: 11/16/2017 ( ; Next Screenin11/16/2022 ) Hx HPV: No. Last mammogram: Last mammogram date: 03/24/2024 Family hx of breast, ovarian, cervical, uterine cancer: Family Cancer History None PE: Assistant Casino Shift Manager present: YES Patient's last menstrual period was 01/25/2019 (approximate). Previous Abnormal PAP: No Indication: (X ) Routine ( )High Risk ( )Hx of ASCUS, ESAU, CA Clinical History: ( )Abnormal Bleeding ( ) ( )Post ( X)Postmenopausal ( )Hysterectomy ( )CHICHO ( )Supracervical ( )Oral Contraceptive ( )IUD ( )HRT ( )Radiation ( )LEEP/Cone/Colpo/Cryo Date: Methodololgy: ( X)Thin Prep ( )Sure Path ( )Conventional # slides Ht 4' 11 (1.499 m) Wt 222 lb (100.7 kg) LMP 01/25/2019 (Approximate) BMI 44.84 kg/m?? OB Status Postmenopausal Smoking Status Never BSA 2.05 m?? Body mass index is 44.84 kg/m??. General appearance: in no apparent distress. Breast exam: normal without suspicious masses, skin or nipple changes or axillary nodes. External Genitalia: normal appearing with no masses, tenderness or lesions Cervix: no lesions or cervical motion tenderness Adnexa: no masses palpable, nontender A&P: Z01.419 Cervical smear, as part of routine gynecological examination (primary encounter diagnosis) Plan : THIN PREP IMAGE PAP + HPV RNA E6/E7 W/RFLX HPV 16, 18/45 Z12.4 Routine Papanicolaou smear Plan : THIN PREP IMAGE PAP + HPV RNA E6/E7 W/RFLX HPV 16, 18/45 Z12.31 Screening mammogram for breast cancer Plan : REFERRAL FOR MAMMOGRAM documented in this encounter Plan of Treatment Scheduled Orders Name Type Priority Associated Diagnoses Orde r Schedule REFERRAL FOR MAMMOGRAM Imaging Routine Screening mammogram for breast cancer Ordered: 06/20/2024 documented as of this encounter Goals Goal Patient Goal Type Associated Problems Recent Progress Patient-Stated? Author Blood Pressure < 140/90 Blood Pressure Essential hypertension 138/80(2023 8:52 AM EST) No Tamiko Mckenzie, PharmD documented as of this encounter Procedures Procedure Name Priority Date/Time Associated Diagnosis Comments THIN PREP IMAGE PAP + HPV RNA E6/E7 W/RFLX HPV 16, 18/45 Routine 06/20/2024 3:08 PM EST Cervical smear, as part of routine gynecological examination Routine Papanicolaou smear documented in this encounter Results * THIN PREP IMAGE PAP + HPV RNA E6/E7 W/RFLX HPV 16, 18/45 (06/20/2024 3:08 PM EST) CLINICAL INFORMATION See Note [employer] Comment:POSTMENOPAUSAL~ROUTI NE EXAM LMP See Note [employer] Comment:[id number] PREV. PAP [facility] PREV. BX See Note [employer] Comment:NONE GIVEN SOURCE See Note [employer] Comment:Cervix STATEMENT OF ADEQUACY See Note [employer] Comment: Satisfactory for evaluation. Endocervical/transformation zone component present. Partially obscuring blood INTERPRETATION/RESU LT See Note [facility] Comment: Cytology Results: Negative for intraepithelial lesion or malignancy. COMMENT See Note [facility] Comment: This Pap test has been evaluated with computer assisted technology. SUPPLY CHAIN GENERALIST See Note [facility] [employer] Comment: RMM, CT(ASCP) CT screening location: [address] ??[address] COMMENT [employer] HPV MRNA E6/E7 Not Detected Not Detected [facility] Comment: Methodology: Storage Battery Inspector-Mediated Amplification This assay detects E6/E7 viral messenger RNA (mRNA) from 14 high-risk HPV types (16,18,31,33,35,39,45,51,52,56,58,59,66,68). Cervical sources are required for HPV testing. If a vaginal source from a patient who has had a total hysterectomy with removal of cervix was submitted, please contact the testing laboratory for alternative testing options. For additional information, please refer to http://education.Libersy/faq/JLF265k2 (This link if provided for information/ educational purposes only.) Swab Endocervical structure / Unknown 06/20/2024 3:08 PM EST 06/21/2024 4:44 AM EST Narrative [facility] - 06/22/2024 5:54 PM EST EXPLANATORY NOTE: [...] along with historic and current clinical information. us Ludwin Pro PA-C LAB - NO BLOOD DRAW Final Re sult [facility] [address] [address], [employer] [address] [place] [address] documented in this encounter Visit Diagnoses Diagnosis Cervical smear, as part of routine gynecological examination- Primary Screening for malignant neoplasm of the cervix Routine Papanicolaou smear Screening for malignant neoplasm of the cervix Screening mammogram for breast cancer documented in this encounter Additional Health Concerns Assessment Noted Time PHQ-9 Depression Total Score: 0 06/20/19 25 3:07 PM PST documented as of this encounter Care Teams Geotechnician Relationship Specialty Start Date End Date Ludwin Pro PA-C [address] [place] [address] PCP - General FAMILY MEDICINEESTEFANY 01/19/20 documented as of this encounter
== END 2024-07-01 10:43 | disposition home or self-care (01) ==
PROVIDERS: PCP Physician Assistant Medical; Visit Provider Physician Assistant Medical
DX: I10 Essential (primary) hypertension (principal); G47.33 Obstructive sleep apnea (adult) (pediatric)
CPT/HCPCS: 99213

== ENCOUNTER → 2024-07-01 09:46 | Outpatient (BNVA) | payer MEDICAID, SELFPAY | PROVIDERS: PCP Physician Assistant Medical; Visit Provider Physician Assistant Medical | DX: G47.33 Obstructive sleep apnea (adult) (pediatric) (principal); I10 Essential (primary) hypertension | CPT/HCPCS: 99212 ==

== ENCOUNTER 2024-09-28 09:47 | Outpatient (AMB) | payer MEDICAID, SELFPAY ==
[2024-09-28 09:59] VITALS: PULSE 93; O2SAT 95; BMI 39.9
--- NOTE | 2024-09-28 09:59 | MHC.OFFVIS ---
Vital Signs 09/28/24 09:59 Height 5 ft 2 in Weight 218 lb BMI 39.9 Pulse 93 Pulse Source Pulse Oximeter Pulse Oximetry (%) 95 Oxygen Delivery Method Room Air Intake Visit Reasons: Follow Up Intake Note: Patient presents follow up PATRICK. Compliance in chart(66/90 days, >=4hrs-58 days, Median Leaks 10.1, AHI-1.4). Surgical Assist Required: Yes Surgical Assist Services: Surgical Assist Present Surgical Assist Name: Ed [id number] Information Interpreted: non-clinical & clinical Allergies No Known Allergies Allergy (Verified 09/28/24 10:08) HPI Comments Details: 59 y/o female patient with HTN presents for follow up of PATRIKC. Surgical Assist on Ipad Tricia Manuel helps with history The CPAP compliance and therapy response (06/2024 - 09/22/2024). Total usage >4 hours 66/90 days and 73% Avg total days use 4 hours and 5min. CPAP Press [id number]. leaks median 10.1, and AHI is 1.4 Since using the CPAP her quality of sleep had improved and now her bp is better controlled. She goes to bed about 10pm to 11pm, and wakes up at 8am, with one bathroom break. Her daytime sleepiness has improved significantly. After her total knee surgery on r. knee, Jan 27, 2024, she was having a difficult time walking, now she is able to walk daily and wears a knee brace as needed. She uses a full face mask and liked the mask, tried the nose pillows and did not like them. She denies headaches, her mood is good, diet is okay. She cleans the mask daily, changes out filters, uses distilled water in the reservoir as needed. Pressures are too high for her and would like to have a mask fitting. Today we discussed the importance of cpap compliance due to hypertension and the need for good quality of sleep nightly. Her mood has improved and wants to address her weight loss strategies, we recommended walking daily for 10-15min and or swimming if possible, looking at nutritional intake, cutting out sugars as she likes to drink coke. We discussed increasing water intake to 64 ounces daily with lemon. Her memory is stable, she forgets occasionally however this is not a problem. She cleans the mask daily, changes out filters, uses distilled water in the reservoir as needed. [facility] Surgical History H/O knee surgery Social History Household Members: None Housing: Apartment Alcohol intake: never Patient Tobacco Use Status: Never used Tobacco Physical Exam Vital Signs: Last Vital Signs Pulse 93 09/28/24 09:59 Pulse Ox 95 09/28/24 09:59 Oxygen Delivery Method Room Air 09/28/24 09:59 BMI result Body Mass Index 39.9 Const General: cooperative, comfortable and no acute distress Orientation/consciousness: patient oriented x3 HEENT Face and sinus: Yes face symmetric Eyes Pupils: Equal, round and reactive pupils present Neck Neck: Yes full ROM Resp Effort & Inspection: normal respiratory effort and able to speak in complete sentences Neuro General: patient oriented x3 and moves all extremities Cranial nerves: Yes Facial sensation intact/muscles of mastication intact, Yes Equal, round and reactive pupils present, Yes Normal accommodation reflex present, Yes Normal facial strength present, Yes Midline tongue present, Yes Ability to bilaterally rotate head present and Yes Ability to bilaterally elevate shoulders present Gait exam (Neuro): Other gait observations present (walks with a cane leans to left.) Psych Appearance: grossly normal Thought process: Normal thought process present Thought content: Normal thought content present Results Reviewed Results Reviewed: The CPAP compliance and therapy response (06/2024 - 09/22/2024). Total usage >4 hours 66/90 days and 73% Avg total days use 4 hours and 5min. CPAP Press [id number]. leaks median 10.1, and AHI is 1.4 Assessment & Plan Assessment & Plan (1) PATRICK (obstructive sleep apnea): Comment: Severe degree of sleep apnea. The AHI was 34/hr and oxygen satish was 75% Code(s): G47.33 - Obstructive sleep apnea (adult) (pediatric) Category: Medical (2) Gait instability: Code(s): R26.81 - Unsteadiness on feet Category: Medical (3) Fatigue due to sleep pattern disturbance: Code(s): R53.83 - Other fatigue; G47.9 - Sleep disorder, unspecified Category: Medical Plan PATRICK on CPAP therapy continue as patient experiencing restful sleep. Gait instability due to recent r. knee surgery will send her to PT Labs to r/o nutritional deficiencies. Orders: Orders Complete Blood Count no Diff Today G47.9 - Sleep disorder, unspecified, R53.83 - Other fatigue Comprehensive Met. Panel Today G47.9 - Sleep disorder, unspecified, R53.83 - Other fatigue Vitamin D 25-OH Total Today G47.9 - Sleep disorder, unspecified, R53.83 - Other fatigue Vitamin B12 and Folate Today G47.9 - Sleep disorder, unspecified, R53.83 - Other fatigue PT Evaluation and Treatment Today R26.81 - Unsteadiness on feet Ferritin Today G47.9 - Sleep disorder, unspecified, R53.83 - Other fatigue Hemoglobin A1c Today G47.9 - Sleep disorder, unspecified, R53.83 - Other fatigue Homocysteine Today G47.9 - Sleep disorder, unspecified, R53.83 - Other fatigue Methylmalonic Acid Today G47.9 - Sleep disorder, unspecified, R53.83 - Other fatigue Lipid Panel with Reflex Today G47.9 - Sleep disorder, unspecified, R53.83 - Other fatigue TSH reflex Free T4 Today G47.9 - Sleep disorder, unspecified, R53.83 - Other fatigue Patient Instructions: Sleep Hygiene provided: set a scheduled bedtime and wake time to help regulate the circadian rhythm and balance the release of pituitary hormones. Sleep in a dark room, temperatures below 68 degrees, and no devices n bed. Limit caffeinated products 6 hours prior to bed, and limit fluids 2-4 hours prior to bed. Gentle night yoga, diffusing essential oils, and playing soft music can be relaxing. Wash mask, tubing and change filters. Fill reservoir with distilled water. Start daily walking for 10-15 min with a knee brace, and f/u in 6 months for compliance. Increase daily water intake to 64ounces add lemon in water bottle, decrease sugars, especially coke. Coding Level of Care Code Est Pt Level 4 (80235) Diagnoses PATRICK (obstructive sleep apnea) G47.33 Gait instability R26.81 Fatigue due to sleep pattern disturbance R53.83; G47.9 Time Spent (min) 20
--- OUTSIDE RECORDS SUMMARY | 2024-09-28 11:09 | XMS_ITS | Clinical Summary ---
Author Organization [address] [facility] Address [address] [place] [address] Phone Care Team Providers Care Binding Cementer French Cord Name Role Phone Raf Pedroza Primary Care Provider [phone] Allergies No known active allergies Medications acetaminophen [...] mouth 1 (one) time each day. Active Encounters Date Type Department Care Team Description 07/11/2024 9:58 AM EST - 07/11/2024 11:59 PM EST [facility] [address] [address] Encounter for screening mammogram for malignant neoplasm of breast Discharge Disposition: Home or Self Care from Last 3 Months Social History Tobacco Use Types Packs/Day Years Used Date Smoking Tobacco: Never Assessed Comments No Sex and Gender Information Value Date Recorded Sex Assigned at Female 06/29/2024 11:14 AM EST Legal Sex Female 3:51 AM EST Gender Identity Female 06/29/2024 11:14 AM EST Sexual Orientation Straight 06/29/2024 11 :14 AM EST Obstetrics History Para Term AB IAB SAB Ectopic Multiple Livin g Live Births 2 Last Filed Vital Signs Vital Sign Reading Time Taken Comments Blood Pressure - - Pulse - - Temperature - - Respiratory Rate - - Oxygen Saturation - - Inhaled Oxygen Concentration - - Weight 90.7 kg (200 lb) 07/11/2024 10:10 AM EST Height 152.4 cm (5') 07/11/2024 10:10 AM EST Body Mass Index 39.06 07/11/2024 10:10 AM EST Plan of Treatment Health Maintenance Due Date Last Done Comments Hepatitis B Vaccines (1 of 3 - 19+ 3-dose series) 1986 Cervical Cancer Screening: Pap Smear 01/07/1988 Pneumococcal Vaccine: 50+ Years (1 of 1 - PCV) 2017 Colorectal Cancer Screening: Colonoscopy 04/13/2022 Hepatitis C Screening 04/13/2022 Social Influencers of Health Screening 04/13/2022 COVID-19 Vaccine ( season) 2024 06/26/2022, 07/26/2021, 09/01/2020, Additional history exists Influenza Vaccine (Season Ended) 2025 03/26/2022, 05/26/2017 Hypertension/CHF/CAD Annual BMP Blood Test 03/15/2025 03/15/2024 Depression Screening 06/20/2025 06/20/2024 Breast Cancer Screening 07/11/2026 07/12/19 25, 03/05/2023, 01/02/2022, Additional history exists DTaP,Tdap,and Td Vaccines (2 - Td or Tdap) 06/10/2027 06/10/2017 Cholesterol Screening (Lipid Panel) 03/15/2029 03/15/2024, 11/19/2023, 06/12/2023, Additional history exists HIV Screening Completed 02/07/2020 Zoster Vaccines Completed 12/19/2021, 10/17/2020 HIB Vaccines Aged Out No longer eligi [...] age to complete this topic Meningococcal B Vaccine Aged Out No l onger eligible based on patient's age to complete this topic Pneumococcal Vaccine: Pediatrics (0 to 5 Years) and At-Risk Patients (6 to 64 Years) Aged Out No longer eligible based on patient's age to complete this topic RSV Immunization Patients Under 20 months Aged Out No longer eligible based on patient's age to complete this topic Varicella Vaccines Aged Out No longer eligible based on patient's age to complete this topic Procedures Procedure Name Priority Date/Time Associated Diagnosis Comments MG MAMMO DIGITAL SCREENING W JOSE BILAT Routine 07/11/2024 10:16 AM EST Encounter for screening mammogram for malignant neoplasm of breast from Last 3 Months Results * MG Mammo Digital Screening w Jose bilat (07/11/2024 10:16 AM EST) Anatomical Region Laterality Modality Breast Bilateral Mammography 07/11/2024 3:41 PM EST Impressions 07/11/2024 3:48 PM EST No mammographic evidence of malignancy. ?? No suspicious interval change. There are arterial calcifications, patient less than 60 years old. ??In the absence of diabetes or chronic renal disease, consider formal cardiovascular risk assessment ASSESSMENT: ?? BI-RADS 2: BENIGN RECOMMENDATION(S): 1: Routine screening mammogram BILATERAL in 1 year. If the patient does not have diabetes or chronic renal disease, consider formal cardiovascular risk assessment [facility] [address], [address] -------- FINAL REPORT -------- Dictated By: Varun Barraza Dictated Date: 07/11/2024 15:41 ET Assigned Physician: Varun Barraza Reviewed and Electronically Signed By: Varun Barraza Signed Date: 07/11/2024 15:48 ET Workstation ID: [id number] Transcribed By: Self Edit Transcribed Date: 07/11/2024 15:41 ET Narrative 07/11/2024 3:48 PM EST EXAM: ??SCREENING MAMMOGRAPHY, BILATERAL HISTORY: ??SCREENING. ??No additional history. COMPARISON: ??03/05/2023, 01/02/2022 TECHNIQUE: Synthesized CC and MLO projections of each breast. ??Tomosynthesis of each breast in the CC and MLO projections. ADDITIONAL IMAGING: None Computer-aided detection was employed with the iCAD ??ProFound AI 3-D. TISSUE DENSITY: There are scattered areas of fibroglandular density. (BI-RADS category B) FINDINGS: There are arterial calcifications. RIGHT BREAST: No suspicious mass. No suspicious calcification. No distortion. ?? No additional suspicious right breast findings LEFT BREAST: No suspicious mass. No suspicious calcification. No distortion. ?? No additional suspicious left breast findings Procedure Note Varun Barraza MD - 07/11/2024 EXAM: SCREENING MAMMOGRAPHY, BILATERAL HISTORY: SCREENING. No additional history. COMPARISON: 03/05/2023, 01/02/2022 TECHNIQUE: Synthesized CC and MLO projections of each breast.Tomosynthesis of each breast in the CC and MLO projections. ADDITIONAL IMAGING: None Computer-aided detection was employed with the iCAD ProFound AI 3-D. TISSUE DENSITY: There are scattered areas of fibroglandular density.(BI-RADS category B) FINDINGS: There are arterial calcifications. RIGHT BREAST: No suspicious mass. No suspicious calcification. No distortion. Noadditional suspicious right breast findings LEFT BREAST: No suspicious mass. No suspicious calcification. No distortion. Noadditional suspicious left breast findings IMPRESSION: No mammographic evidence of malignancy. No suspicious interval change. There are arterial calcifications, patient less than 60 years old. In theabsence of diabetes or chronic renal disease, consider formalcardiovascular risk assessment ASSESSMENT: BI-RADS 2: BENIGN RECOMMENDATION(S): 1: Routine screening mammogram BILATERAL in 1 year. If the patient does not have diabetes or chronic renal disease, considerformal cardiovascular risk assessment [facility] [address] [place], [address] -------- FINAL REPORT -------- Dictated By: Varun Barraza Dictated Date: 07/11/2024 15:41 ET Assigned Physician: Varun Barraza Reviewed and Electronically Signed By: Varun Barraza Signed Date: 07/11/2024 15:48 ET Workstation ID: [id number] Transcribed By: Self Edit Transcribed Date: 07/11/2024 15:41 ET Ludwin ALLISON IMG BI PROCEDURES Final Result from Last [address] [place] [address] [id number] MEDICAID - [place] Care Teams Binding Cementer French Cord Relationship Specialty Start Date End Date Raf Pedroza PA [address], [place] PCP - General Physician Assistant Executive Housekeeper 03/18/24
--- OUTSIDE RECORDS SUMMARY | 2024-09-28 11:09 | XMS_ITS | Clinical Summary ---
Author Organization [facility] Address [address] [place] [address] Care Team Providers Care Supervisor Mail Carriers Name Role Phone Ludwin Pro PA-C Primary Care Provider [phone] Source Comments PLEASE NOTE, if this patient [...] Colon cancer screening 07/29/2017 Overview (07/29/2017): 07/27/2017 [facility]- Colonoscopy Hemorrhoids found on perianal exam. Perianal skin tags found on perianal exam. Diverticulosis in the sigmoid colon and in the left colon. The examination was otherwise normal. No specimens collected. Recommended: Repeat in 10 years. Breast cancer screening 07/03/2017 Overview (07/07/2017): 07/01/2017 [facility]- Mammogram Screening Superficial oval mass within [...] - incomplete needs additional imaging evaluation. 07/03/2017 [facility]- US Breast Findings consistent with sebaceous [...] Diagnosed Date Resolved Date Depression 05/26/2017 02/13/2023 Immunizations Immunization Administration Dates Next Due Flu, Preservative Free [...] 07/27/2018 07/27/2017 (Lisa jolly by Outside Provider) [id number] ( season) 2024 06/26/2022, 07/26/2021, 09/01/2020, Additional history exists Dental BW 11/03/2024 11/02/2023 Dental Examination 11/03/2024 11/02/2023 Dental Perio Charting 11/03/2024 11/02/2023 Tobacco Screening 11/04/2024 11/05/2023 Annual Wellness (Adult): Indicated (All Coverage) 06/20/2025 06/20/2024, 03/14/2024, 02/13/2023, Additional history exists Anxiety Screening 06/20/2025 06/20/2024 Breast Cancer Screening (Mammogram) 07/11/2025 07/11/2024, 03/05/2023, 03/05/2023, Additional history exists Diabetes Screening 03/15/2027 03/15/2024, 0 11/19/2023, 06/12/2023, Additional history exists Lipid Screening 03/15/2027 03/15/2024, 0705/2023, 06/12/2023, Additional history exists Imm-DTaP/Tdap/Td (2 - Td or Tdap) 06/10/2027 018 Pap Smear 06/20/2027 06/20/2024, 07/0 01/2018, 11/16/2017 [...] Procedure Name Priority Date/Time Associated Diagnosis Comments OTHER ORDERS SCANNED DOCUMENT 08/10/2024 3:00 AM EDT OTHER ORDERS SCANNED DOCUMENT 08/10/2024 3:00 AM EDT OTHER ORDERS SCANNED DOCUMENT 08/10/2024 3:00 AM EDT OTHER ORDERS SCANNED DOCUMENT 08/10/2024 3:00 AM EDT REFERRAL FOR MAMMOGRAM Routine 07/11/2024 3:00 AM EST Screening mammogram for breast cancer REFERRAL SCANNED DOCUMENT 07/01/2024 3:00 AM EST THIN PREP IMAGE PAP + HPV RNA [...] 1:00 PM EDT Encounter for dental examination ANTIBODY HIV-1&HIV-2 SINGLE RESULT Routine 02/07/2020 12:12 PM EDT Encounter for general adult medical examination w/o abnormal findings HEPATITIS A,B,C PANEL Routine 02/07/2020 12:12 PM EDT Encounter for general adult medical examination w/o abnormal findings from Last 3 Months or Most Recently Relevant to Health Maintenance Results * OTHER ORDERS SCANNED DOCUMENT (08/10/2024 3:00 AM EDT) Only the most recent of4 resultswithin the time period is included. 08/10/2024 3:00 AM EDT [employer] PatriciaAvalaraphuc ALLISON-Andre SCAN OTHER ORDERS Final Resu lt * REFERRAL FOR MAMMOGRAM SCREENING (07/11/2024 3:00 AM EST) 07/11/2024 3:00 AM EST [employer] [facility]OLCOM[facility] IMG RFL MAMMO Edited Resul t - Final * REFERRAL SCANNED DOCUMENT (07/01/2024 3:00 AM EST) 07/01/2024 3:00 AM EST [employer] ALLISON-C SCAN REFERRAL Final Result * THIN PREP IMAGE PAP + HPV RNA E6/E7 W/RFLX HPV 16, 18/45 (06/20/2024 3:08 PM EST) Pathologist [facility] CLINICAL INFORMATION See Note [employer] [facility] Comment:POSTMENOPAUSAL~ROUTI NE EXAM LMP See Note [employer] Comment:[id number] PREV. PAP [employer] PREV. BX See Note [employer] Comment:NONE GIVEN SOURCE See Note [employer] Comment:Cervix STATEMENT OF ADEQUACY See Note [employer] Comment: Satisfactory for evaluation. Endocervical/transformation zone component present. Partially obscuring blood INTERPRETATION/RESU LT See Note [employer] Comment: Cytology Results: Negative for intraepithelial lesion or malignancy. COMMENT See Note [employer] Comment: This Pap test has been evaluated with computer assisted technology. SYSTEMS COORDINATOR See Note [facility] [employer] Comment: RMM, CT(ASCP) CT screening location: [address] ??[address] COMMENT [employer] HPV MRNA E6/E7 Not Detected Not Detected [employer] Comment: Methodology: Sheet Music Salesperson-Mediated Amplification This assay detects E6/E7 viral messenger RNA (mRNA) from 14 high-risk HPV types (16,18,31,33,35,39,45,51,52,56,58,59,66,68). Cervical sources are required for HPV testing. If a vaginal source from a patient who has had a total hysterectomy with removal of cervix was submitted, please contact the testing laboratory for alternative testing options. For additional information, please refer to http://education.[employer]/faq/DTZ414y1 (This link if provided for information/ educational purposes only.) Swab Endocervical structure / Unknown 06/20/2024 3:08 PM EST 06/21/2024 4:44 AM EST Narrative [employer] - 06/22/2024 5:54 PM EST EXPLANATORY NOTE: [...] clinical information. Ludwin Pro PA-C LAB - PATHOLOGY AND CYTOLOGY AMBULATORY Final Result [employer] [address] [place] [id number], [employer] [facility] [address] [place] [address] * (ABNORMAL) LIPIDS W RFLX TO DIRECT LDL (03/15/2024 11:32 AM EST) CHOLESTEROL, TOTAL 181 <200 mg/dL [employer] [facility] HDL CHOLESTEROL 39(L) > OR = 50 mg/dL [employer] TRIGLYCERIDES 156(H) <150 mg/dL [employer] LDL-CHOLESTEROL 115(H) 99 mg/dL (calc) [employer] Comment: Reference range: <100 Desirable range <100 mg/dL for primary prevention; ?? <70 mg/dL for patients with CHD or diabetic patients with > or = 2 CHD risk factors. LDL-C is now calculated using the Andreina calculation, which is a validated novel method providing better accuracy than the Friedewald equation in the estimation of LDL-C. Riccardo EMANUEL et al. MARTINE. 2013;310(19): 4752-5388 (http://education.[employer]/faq/WPJ497) CHOL/HDLC RATIO 4.6 <5.0 (calc) [employer] NON-HDL CHOLESTEROL 142(H) <130 mg/dL (calc) [employer] Comment: For patients with diabetes plus 1 major ASCVD risk factor, treating to a non-HDL-C goal of <100 mg/dL (LDL-C of <70 mg/dL) is considered a therapeutic option. Blood Blood / Unknown 03/15/2024 1 1:32 AM EST 03/15/2024 11:33 AM EST [facility] LAB - BLOOD DRAW Final Resul t [facility] [address] [address], [employer] [facility] [address] [place] [address] * COMPREHENSIVE METABOLIC PANEL (03/15/2024 11:32 AM EST) Pathologist [facility] GLUCOSE 94 65 - 99 mg/dL [employer] Comment: ?Fasting reference interval UREA NITROGEN (BUN) 17 7 - 25 mg/dL [employer] [facility] CREATININE (blood) 0.64 0.50 - 1.03 mg/dL [employer] [facility] EGFR 103 > OR = 60 mL/min/1. 73m2 [employer] [facility] BUN/CREATININE RATIO SEE NOTE: [employer] [facility] Comment: ?? Not Reported: BUN and Creatinine are within ?? reference range. ? SODIUM 139 135 - 146 mmol/L [employer] [facility] POTASSIUM 4.5 3.5 - 5.3 mmol/L [employer] [facility] CHLORIDE 105 98 - 110 mmol/L [employer] [facility] CARBON DIOXIDE 29 20 - 32 mmol/L [employer] [facility] CALCIUM 9.3 8.6 - 10.4 mg/dL [employer] [facility] PROTEIN, TOTAL 7.8 6.1 - 8.1 g/dL [employer] [facility] ALBUMIN 4.3 3.6 - 5.1 g/dL [employer] [facility] GLOBULIN 3.5 1.9 - 3.7 g/dL (calc) [employer] [facility] ALBUMIN/GLOBULI N RATIO 1.2 1.0 - 2.5 (calc) [employer] [facility] BILIRUBIN, TOTAL 0.5 0.2 - 1.2 mg/dL [employer] [facility] ALKALINE PHOSPHATASE 102 37 - 153 U/L [employer] [facility] AST 11 10 - 35 U/L [employer] [facility] ALT 10 6 - 29 U/L [employer] [facility] Blood Blood / Unknown 03/15/2024 1 1:32 AM EST 03/15/2024 11:33 AM EST [facility] LAB - BLOOD DRAW Edited Resu lt - Final [employer] [facility] [address] [address], [employer] [facility] [address] [place] [address] * (ABNORMAL) HEPATITIS A,B,C PANEL (02/07/2020 12:12 PM EDT) HEPATITIS B SURFACE ANTIBODY POSITIVE(A) NEGATIVE [facility] HEPATITIS B SURFACE ANTIGEN NEGATIVE NEGATIVE [facility] Comment: Over the counter supplements containing high doses of biotin may interfere with this assay. ??If interference is suspected, patients shoud be retested after refraining from biotin supplements for 72 hours. HEPATITIS C VIRUS DIAGNOSTIC NEGATIVE NEGATIVE [facility] HEPATITIS A ANTIBODY TOTAL NEGATIVE NEGATIVE [facility] Comment: Over the counter supplements containing high doses of biotin may interfere with this assay. ??If interference is suspected, patients shoud be retested after refraining from biotin supplements for 72 hours. HEPATITIS B CORE ANTIBODY NEGATIVE NEGATIVE [facility] Blood Blood / Unknown 02/07/2020 1 2:12 PM EDT 02/07/2020 3:38 PM EDT Patricia [facility] - 02/07/2020 5:12 PM EDT [employer], [place] [address] Campaign Fundraiser - Georgette Kowalski MD PT ID [id number] ORD# [id number] Gladys [facility] LAB - BLOOD DRAW [place] [address], * HIV-1 & HIV-2 ANTIBODIES (02/07/2020 12:12 PM EDT) [facility] HIV 1 AND 2 ANTIBODY SCREEN NEGATIVE NEGATIVE [facility] Comment: This assay is a [...] 2:12 PM EDT 02/07/2020 3:38 PM EDT Patricia [facility] - 02/07/2020 5:42 PM EDT [employer], [place] [address] Campaign Fundraiser - Georgette Kowalski MD PT ID [id number] ORD# [id number] Gladys [facility] LAB - BLOOD DRAW Final Resu lt [facility]- [address] [place] [address], from Last 3 Months or Most Recently Relevant to Health Maintenance Insurance [id number] [facility] [place] MEDICA[place] DENTAL [facility] SAFETY NET DENTAL Care Teams Supervisor Mail Carriers Relationship Specialty Start Date End Date Ludwin Pro PA-C [address] [place] [address] PCP - General FAMILY MEDICINEESTEFANY 01/19/20
== END 2024-09-28 10:31 | disposition home or self-care (01) ==
LOC: HO.HSMS 09:48
PROVIDERS: PCP Physician Assistant Medical; Visit Provider Physician Assistant Medical
DX: G47.33 Obstructive sleep apnea (adult) (pediatric) (principal); R26.81 Unsteadiness on feet; R53.83 Other fatigue; G47.9 Sleep disorder, unspecified
CPT/HCPCS: 99214

== ENCOUNTER → 2024-09-28 09:47 | Outpatient (BNVA) | payer MEDICAID, SELFPAY | PROVIDERS: PCP Physician Assistant Medical; Visit Provider Physician Assistant Medical | DX: G47.33 Obstructive sleep apnea (adult) (pediatric) (principal); R26.81 Unsteadiness on feet; R53.83 Other fatigue; G47.9 Sleep disorder, unspecified | CPT/HCPCS: 99212 ==

== ENCOUNTER 2025-01-10 13:00 | Outpatient (RCR) | payer MEDICAID, SELFPAY ==
--- NOTE | 2024-12-08 13:55 | MHC.PT.EP ---
[facility] [place] [facility] [place] Office [address] Edward Schneider [address] [phone] F: [phone] F: [phone] F: [phone] F: [phone] Physical Therapy Plan of Care Date of Evaluation: 12/07/24 Date of Surgery: 01/26/25 Diagnosis: Unsteadiness on feet Gait instability, recent R TKA Assessment: Pt is a pleasant 59yo F who presents to PT with unsteadiness and pain in R knee. She is s/p R TKA 01/27/24. She presents to PT with current impairments in pain, decreased ROM, decreased strength, soft tissue restrictions, decreased balance, and impaired gait. She is limited functionally by prolonged sitting, sitting<>standing, getting in/out of tub, and walking. She is a good candidate for skilled PT in order to address current impairments to facilitate return to PLOF. 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 Manual therapy to restore motion and function. Therapeutic exercise to improve strength and flexibility. Neuromuscular re-education for posture and balance. Therapeutic activities to return to functional activities of daily living. Electronically signed by: Lidia Will, PT, DPT Please sign and return to therapist. Thank you for your referral.
== END 2025-02-02 15:19 | disposition home or self-care (01) ==
LOC: HO.PTS 13:00
PROVIDERS: PCP Physician Assistant Medical; Visit Provider Physician Assistant Medical
DX: R26.81 Unsteadiness on feet (principal); Z96.651 Presence of right artificial knee joint
CPT/HCPCS: 97110; 97112; 97116; 97140; 97161; 97530

== ENCOUNTER 2025-04-04 10:52 | Outpatient (AMB) | payer MEDICAID, SELFPAY ==
--- NOTE | 2025-04-04 11:01 | MHC.OFFVIS ---
Vital Signs 04/04/25 11:02 Height 5 ft 2 in Weight 114 lb 6 oz BMI 20.9 BP 134/72 Blood Pressure Location Rt brachial Position Sitting Pulse 95 Pulse Source Pulse Oximeter Pulse Oximetry (%) 95 Oxygen Delivery Method Room Air Intake Visit Reasons: Follow Up 6m Intake Note: Patient presents follow up PATRICK. Compliance in chart(57/90days, >=4hrs-62%, Average Usage-4hr 14min, Pressure-10cm, Med leaks-5.1, AHI-2.5). Surfacing Technician Required: Yes Surfacing Technician Language: Portfolio Lead Services: Surfacing Technician Present Surfacing Technician Name: Hailee [id number] Information Interpreted: non-clinical & clinical Accompanied by: Daughter Allergies No Known Allergies Allergy (Verified 04/04/25 11:05) HPI Comments Details: 60 y/o female patient with HTN presents for a follow up of PATRICK. Daughter Mar helps with history taking today. The CPAP compliance and therapy response (12/2024 - 03/2025). Total usage >4 hours 57/90 days and 62%, Avg total days use 4 hours and 14min. CPAP Press [id number]. Med leaks 5.1 and AHI is 2.5/hr. She cleans the mask daily, changes out filters, uses distilled water in the reservoir as needed. Since using the CPAP her quality of sleep has improved. She goes to bed about 10pm to 11pm, and wakes up at 8am, with one bathroom break.She uses a nasal pillows and does not like the fit and the pressures are too high for her, she would like to have a mask fitting with a full face mask. We discussed the importance of cpap compliance due to hypertension and to avoid cardiovascular risks. Her mood has improved, she feels less anxious. She wants to address her weight loss strategies. She started walking daily for 10-15min and will see about swimming if possible at the [facility]. She is researching her own daily nutritional intake, monitoring sugars and decreasing intake of carbonated beverages. We discussed increasing water intake to average of 48- 64 ounces daily with lemon or other flavors if possible to increase hydration. Her memory is stable, she forgets occasionally and needs reminders. Needs to write things down and has to focus, but thinks this is due to the language barrier. [facility] Surgical History H/O knee surgery Social History Household Members: None Housing: Apartment Alcohol intake: never Patient Tobacco Use Status: Never used Tobacco Physical Exam Vital Signs: Last Vital Signs Pulse 95 04/04/25 11:02 BP 134/72 04/04/25 11:02 Pulse Ox 95 04/04/25 11:02 Oxygen Delivery Method Room Air 04/04/25 11:02 BMI result Body Mass Index 20.9 Const General: cooperative, comfortable and no acute distress Orientation/consciousness: patient oriented x3 HEENT Face and sinus: Yes face symmetric Eyes Pupils: Equal, round and reactive pupils present Neck Neck: Yes full ROM Resp Effort & Inspection: normal respiratory effort and able to speak in complete sentences Neuro General: patient oriented x3 and moves all extremities Cranial nerves: Yes Facial sensation intact/muscles of mastication intact, Yes Equal, round and reactive pupils present, Yes Normal accommodation reflex present, Yes Normal facial strength present, Yes Midline tongue present, Yes Ability to bilaterally rotate head present and Yes Ability to bilaterally elevate shoulders present Gait exam (Neuro): Other gait observations present (walks with a cane leans to left.) Motor exam (neuro): Abnormal motor strength present and Abnormal muscle tone present Psych Appearance: grossly normal Thought process: Normal thought process present Thought content: Normal thought content present Results Reviewed Results Reviewed: The CPAP compliance and therapy response (12/2024 - 03/2025). Total usage >4 hours 57/90 days and 62%, Avg total days use 4 hours and 14min. CPAP Press [id number]. Med leaks 5.1 and AHI is 2.5/hr. She cleans the mask daily, changes out filters, uses distilled water in the reservoir as needed. Assessment & Plan Assessment & Plan (1) PATRICK on CPAP: Code(s): G47.33 - Obstructive sleep apnea (adult) (pediatric) Category: Medical (2) PATRICK (obstructive sleep apnea): Comment: Severe degree of sleep apnea. The AHI was 34/hr and oxygen satish was 75% Code(s): G47.33 - Obstructive sleep apnea (adult) (pediatric) Category: Medical (3) Gait instability: Code(s): R26.81 - Unsteadiness on feet Category: Medical (4) Fatigue due to sleep pattern disturbance: Code(s): R53.83 - Other fatigue; G47.9 - Sleep disorder, unspecified Category: Medical (5) Loud snoring: Code(s): R06.83 - Snoring Category: Medical Plan PATRICK on CPAP therapy, continues to have leaks and AHI is elevated, will send pt for new mask fitting for the AirFit N30i, full face mask. Compliance of cpap and > 4 hours nightly is reviewed with pt today for optimizing therapy. Gait instability due to recent r. knee surgery, she is trying to walk for longer duration and distance, in Physical Therapy now. Labs to r/o nutritional deficiencies. F/U in 3 months. Patient Instructions: Will send pt for mask fitting as she continues to have elevations of AHI and leaks, will send rx for Airfit F30i Medium sized full face mask. Coding Level of Care Code Est Pt Level 4 (61739) Diagnoses PATRICK on CPAP G47.33 PATRICK (obstructive sleep apnea) G47.33 Gait instability R26.81 Fatigue due to sleep pattern disturbance R53.83; G47.9 Loud snoring R06.83
[2025-04-04 11:02] VITALS: BP 134/72; PULSE 95; O2SAT 95; BMI 20.9
--- OUTSIDE RECORDS SUMMARY | 2025-04-04 14:13 | XMS_ITS | Clinical Summary ---
Author Organization [employer] Address [address] [place] [address] [address] [place] [address] Care Team Providers Care Vp Sales Name Role Phone Unavailable Primary Care Provider Unavailabl e Social History Tobacco Use Types Packs/Day Years Used Date Smoking Tobacco: Never Assessed Comments Unknown Sex and Gender Information Value Date Recorded Sex Assigned at Not on file Legal Sex Female 9:27 PM EDT Gender Identity Not on file Sexual Orientation Not on file Plan of Treatment Health Maintenance Due Date Last Done Comments CT Colonography 1967 Colonoscopy 1967 Colorectal Cancer Screening 1967 Depression Screening 1967 FIT DNA/Cologuard 1967 FIT 1967 FOBT 1967 Lipid Panel 1967 SDOH Screening 1967 Sigmoidoscopy 1967 Disability Screening 1967 Alcohol/Substance Use Screening 1979 Tobacco Screening 1979 Hepatitis C Screening 1985 Hepatitis B Vaccines (1 of 3 - 19+ 3-dose series) 1986 Pap Smear 01/07/1988 Cervical Cancer Screening 1997 HPV/Cotest 1997 COVID-19 Vaccine ( season) 2025 06/26/2022, 07/26/2021, 09/01/2020, Additional history exists Influenza Vaccine (#1) 2025 03/26/2022, 2017 Mammogram 07/11/2026 07/11/2024, 07/11/2024 DTaP/Tdap/Td Vaccines (2 - Td or Tdap) 06/10/2027 06/10/2017 RSV Patients and Patients Aged 60 years or older (1 - 1-dose 75+ series) 2042 HIV Screening Completed 02/07/2020 Zoster Vaccines Completed 12/19/2021, 10/17/2020 Pneumococcal Vaccine: 50+ Years Completed 11/04/2024 HIB Vaccines Aged Out No longer eligi [...] patient's age to complete this topic Meningococcal Vaccine Aged Out No joanie patricia eligible based on patient's age to complete this topic RSV under 20 months Aged Out No longe r eligible based on patient's age to complete this topic Rotavirus Vaccines Aged Out No longer eligible based on patient's age to complete this topic
--- OUTSIDE RECORDS SUMMARY | 2025-04-04 14:13 | XMS_ITS | Clinical Summary ---
Author Organization [facility] Address [address] [place] [address] Phone Care Team Providers Care Holter Scanning Technician Name Role Phone Raf Pedroza Primary Care Provider [phone] Allergies No known active allergies Medications acetaminophen [...] Health Maintenance Due Date Last Done Comments Colorectal Cancer Screening: Colonoscopy 1967 Hepatitis B Vaccines (1 of 3 - 19+ 3-dose series) 1986 Cervical Cancer Screening: Pap Smear 01/07/1988 Pneumococcal Vaccine: 50+ Years (1 of 1 - PCV) 2017 RSV Immunization Adult Patients (1 - Risk 50-74 years 1-dose series) 2017 Hepatitis C Screening 04/13/2022 Social Influencers of Health Screening 04/13/2022 Depression Screening 05/11/2024 COVID-19 Vaccine ( season) 2025 06/26/2022, 07/26/2021, 09/01/2020, Additional history exists Influenza Vaccine (#1) 2025 03/26/2022, 2017 Hypertension/CHF/CAD Annual BMP Blood Test 11/04/2025 11/04/2024, 03/15/2024 Breast Cancer Screening 07/11/2026 07/12/19 25, 03/05/2023, 01/02/2022, Additional history exists DTaP,Tdap,and Td Vaccines (2 - Td or Tdap) 06/10/2027 06/10/2017 Cholesterol Screening (Lipid Panel) 11/04/2029 11/04/2024, 03/15/2024, 11/19/2023, Additional history exists HIV Screening Completed 02/07/2020 [...] Recently Relevant to Health Maintenance Results * MG Mammo Digital Screening w Jose bilat (07/11/2024 10:16 AM EST) Anatomical Region Laterality Modality Breast Bilateral Mammography 07/11/2024 3:41 PM EST Impressions 07/11/2024 3:48 PM EST No mammographic evidence of malignancy. No suspicious interval change. There are arterial calcifications, patient less than 60 years old. In the absence of diabetes or chronic renal disease, consider formal cardiovascular risk assessment ASSESSMENT: BI-RADS 2: BENIGN RECOMMENDATION(S): 1: Routine screening mammogram BILATERAL in 1 year. If the patient does not have diabetes or chronic renal disease, consider formal cardiovascular risk assessment [facility] [address], [address] -------- FINAL REPORT -------- Dictated By: Varun Barraza Dictated Date: 07/11/2024 15:41 ET Assigned Physician: Varun Barraza Reviewed and Electronically Signed By: Varun Barraza Signed Date: 07/11/2024 15:48 ET Workstation ID: [id number] Transcribed By: Self Edit Transcribed Date: 07/11/2024 15:41 ET Narrative 07/11/2024 3:48 PM EST EXAM: SCREENING MAMMOGRAPHY, BILATERAL HISTORY: SCREENING. No additional history. COMPARISON: 03/05/2023, 01/02/2022 TECHNIQUE: Synthesized CC and MLO projections of each breast. Tomosynthesis of each breast in the CC and MLO projections. ADDITIONAL IMAGING: None Computer-aided detection was employed with the [employer] AI 3-D. TISSUE DENSITY: There are scattered areas of fibroglandular density. (BI-RADS category B) FINDINGS: There are arterial calcifications. RIGHT BREAST: No suspicious mass. No suspicious calcification. No distortion. No additional suspicious right breast findings LEFT BREAST: No suspicious mass. No suspicious calcification. No distortion. No additional suspicious left breast findings Procedure Note Varun Barraza MD - 07/11/2024 EXAM: SCREENING MAMMOGRAPHY, BILATERAL HISTORY: SCREENING. No additional history. COMPARISON: 03/05/2023, 01/02/2022 TECHNIQUE: Synthesized CC and MLO projections of each breast.Tomosynthesis of each breast in the CC and MLO projections. ADDITIONAL IMAGING: None Computer-aided detection was employed with the [employer] AI 3-D. TISSUE DENSITY: There are scattered [...] assessment [facility]amm[facility] location: [facility] [address] [place], [address] -------- FINAL REPORT -------- Dictated By: Varun Barraza Dictated Date: 07/11/2024 15:41 ET Assigned Physician: Varun Barraza Reviewed and Electronically Signed By: Varun Barraza Signed Date: 07/11/2024 15:48 ET Workstation ID: [id number] Transcribed By: Self Edit Transcribed Date: 07/11/2024 15:41 ET Ludwin ALLISON IMG BI PROCEDURES Final Result from Last 3 Months or Most Recently Relevant to Health Maintenance [place] [address] [place] [id number] MEDICA[place] Care Teams Holter Scanning Technician Relationship Specialty Start Date End Date Raf Pedroza PA [address] [place] [address] PCP - General Physician [place] [employer] 03/18/24
--- OUTSIDE RECORDS SUMMARY | 2025-04-04 14:13 | XMS_ITS | Data Portability ---
Author Organization [facility] August Gonzalez [facility], [facility] Address [address] [place] [address] Care Team Providers Care Property Maintenance Technician Name Role Phone MILAN BROWNREILLY Referring Provider [phone] Assessment Encounter Date Assessment Date Assessment LastModified by Organization Details LastModified Time 03/22/2024 03/22/2024 History of present illness: The patient is a 59-year-old female presenting status post right total knee arthroplasty. Currently, she is doing well. Her pain is well-controlled. She denies fevers, chills, night sweats, wound breakdown, or drainage. Physical examination: The patient is in no acute distress. She is alert and oriented x3. She has nonlabored breathing. Her hearing is intact to spoken word. Her extra-ocular motion is intact. Right lower extremity - Surgical incision is well healed. There is no erythema, induration, or fluctuance. Knee range of motion is from 0-115 degrees. Knee is stable to varus and valgus stress. Sensation is intact to light touch over the dorsum of the foot, in the first webspace, and over the plantar aspect of the foot. The patient has 5/5 strength with plantarflexion of the ankle, dorsiflexion of the ankle, plantarflexion of the great toe, and dorsiflexion of the great toe. The foot is warm and well-perfused with brisk capillary refill. Radiographs: 3 views of the right knee including bilateral knee AP, right knee lateral, and bilateral knee merchant view were obtained and evaluated in the office previously and are available for review. Xrays demonstrate that the patient is status post right total knee arthroplasty with implants in good overall alignment. Cemented implants appear well fixed. There is no evidence of loosening. There is no evidence of component migration or tibial subsidence. There are no significant osteolytic lesions appreciated. There is no evidence of polyethylene wear. There is no evidence of fracture. Assessment and Plan: The patient is status post right total knee arthroplasty. Currently, she is doing well. Her pain is well controlled. The patient was encouraged to continue working hard on range of motion and strengthening of the knee. The patient should continue with home stretching exercises as needed and over the counter anti-inflammatory medication for any pain or discomfort. The patient was instructed to contact the office prior to any dental work, including routine cleanings, so that they may be prescribed prophylactic antibiotics to be taken 1 hour before their dental appointment. The patient will follow up with me in 1 year for routine surveillance status post total knee arthroplasty or any time the patient has an issue with their total knee arthroplasty. radha Not available 03/22/2024 12:49:49 03/23/2024 03/23/2024 Assessment: Excellent increase in knee ROM today. Improved mechanics with functional mobility including increased flexion throughout swing phase of gait. Plan: Progress towards independent home program. brandi Not available 03/23/2024 13:40:49 Plan of Treatment Reminders Order Date Submit Date Provider Last Modified By Organization Details Last Modified Time Details Appointments None recorded. Lab ESR (erythrocyt e sedimentati on rate), blood 2023 024 [email or web address] 28 [facility] (Centralized Electronic Ordering - All Locations), Patient Can Go To The Location Of Their Choice, [address] 4 08:43:31 C reactive protein, QN, serum or plasma 2023 024 [email or web address] 28 [facility] (Centralized Electronic Ordering - All Locations), Patient Can Go To The Location Of Their Choice, [address] 4 08:43:31 CBC w/ auto diff 2023 024 [email or web address] 28 [facility] (Centralized Electronic Ordering - All Locations), Patient Can Go To The Location Of Their Choice, [address] 4 08:43:31 Referral None recorded. Procedures None recorded. Surgeries None recorded. Imaging XR, knee, 3 view - RTKR on 01/26/24. dr. xiao rm 113 2023 024 [email or web address] [facility], [address], [place], [address], 4 16:07:33 Medication Orders diclofenac 1 % topical gel [email or web address] [id number], [address], [place], [place], [id number], 5 16:52:28 gabapentin 300 mg capsule [email or web address] [id number], [address], [place], [place], [id number], 5 13:39:53 diclofenac sodium 75 mg tablet,celina yed release [email or web address] [facility] [address] [id number], [address], [place], [place], [id number], 4 16:07:33 Patient TargetsNo targets recorded. Patient InstructionsNo instructions recorded. Reason for Referral None Reported. Results Created Date Observation Date Name Description Value Unit Range Abnormal Flag Note LastModifiedBy Organization Detail LastModifiedTime 05/05/20 24 05/06/2024 CBC WITH DIFFE RENTI AL/PL ATELE T WBC 7.0 x10e3 /uL 3.4-10 .8 normal Not Available [facility] ([facility]) [address] [place], [address], 05/06/2024 06:05:23 05/05/20 24 05/06/2024 CBC WITH DIFFE RENTI AL/PL ATELE T RBC 4.66 x10e6 /uL 3.77-5 .28 normal Not Available [facility] ([facility]) [address] [place], [address], 05/06/2024 06:05:23 05/05/20 24 05/06/2024 CBC WITH DIFFE RENTI AL/PL ATELE T hemoglobin 13.7 g/dL 11.1-1 5.9 normal Not Available [facility] ([facility]) [address] [place], [address], 05/06/2024 06:05:23 05/05/20 24 05/06/2024 CBC WITH DIFFE RENTI AL/PL ATELE T hematocrit 42.3 % 34.0-4 6.6 normal Not Available [facility] ([facility]) [address] [place], [address], 05/06/2024 06:05:23 05/05/20 24 05/06/2024 CBC WITH DIFFE RENTI AL/PL ATELE T MCV 91 fL 79-97 normal Not Available [facility] ([facility]) [address] [place], [address], 05/06/2024 06:05:23 05/05/20 24 05/06/2024 CBC WITH DIFFE RENTI AL/PL ATELE T MCH 29.4 pg 26.6-3 3.0 normal Not Available [facility] ([facility]) [address] [place], [address], 05/06/2024 06:05:23 05/05/20 24 05/06/2024 CBC WITH DIFFE RENTI AL/PL ATELE T MCHC 32.4 g/dL 31.5-3 5.7 normal Not Available [facility] ([facility]) [address] [place], [address], 05/06/2024 06:05:23 05/05/20 24 05/06/2024 CBC WITH DIFFE RENTI AL/PL ATELE T RDW 12.7 % 11.7-1 5.4 Not Available [facility] ([facility]) [address] [place], [address], 05/06/2024 06:05:23 05/05/20 24 05/06/2024 CBC WITH DIFFE RENTI AL/PL ATELE T platelets 223 x10e3 /uL 150-45 0 normal Not Available [facility] ([facility]) [address] [place], [address], 05/06/2024 06:05:23 05/05/20 24 05/06/2024 CBC WITH DIFFE RENTI AL/PL ATELE T neutrophils 58 % not estab. normal Not Available [facility] ([facility]) [address] [facility], [place], [address], 05/06/2024 06:05:23 05/05/20 24 05/06/2024 CBC WITH DIFFE RENTI AL/PL ATELE T lymphs 31 % not estab. normal Not Available [facility] ([facility]) [address] [facility], [place], [address], 05/06/2024 06:05:23 05/05/20 24 05/06/2024 CBC WITH DIFFE RENTI AL/PL ATELE T monocytes 7 % not estab. normal Not Available [facility] ([facility]) [address] [facility], [place], [address], 05/06/2024 06:05:23 05/05/20 24 05/06/2024 CBC WITH DIFFE RENTI AL/PL ATELE T eos 4 % not estab. normal Not Available [facility] ([facility]) [address] [place], [address], 05/06/2024 06:05:23 05/05/20 24 05/06/2024 CBC WITH DIFFE RENTI AL/PL ATELE T basos 0 % not estab. normal Not Available [facility] ([facility]) [address] [place], [address], 05/06/2024 06:05:23 05/05/20 24 05/06/2024 CBC WITH DIFFE RENTI AL/PL ATELE T immature cells DESIGN INTERN Not Available [facility] ([facility]) [address] [place], [address], 05/06/2024 06:05:23 05/05/20 24 05/06/2024 CBC WITH DIFFE RENTI AL/PL ATELE T neutrophils (absolute) 4.0 x10e3 /uL 1.4-7. 0 normal Not Available [facility] ([facility]) [address] [place], [address], 05/06/2024 06:05:23 05/05/20 24 05/06/2024 CBC WITH DIFFE RENTI AL/PL ATELE T lymphs (absolute) 2.2 x10e3 /uL 0.7-3. 1 normal Not Available [facility] ([facility]) [address] [place], [address], 05/06/2024 06:05:23 05/05/20 24 05/06/2024 CBC WITH DIFFE RENTI AL/PL ATELE T monocytes(ab solute) 0.5 x10e3 /uL 0.1-0. 9 normal Not Available [facility] ([facility]) [address] [place], [address], 05/06/2024 06:05:23 05/05/20 24 05/06/2024 CBC WITH DIFFE RENTI AL/PL ATELE T eos (absolute) 0.3 x10e3 /uL 0.0-0. 4 normal Not Available [facility] ([facility]) [address] [place], [address], 05/06/2024 06:05:23 05/05/20 24 05/06/2024 CBC WITH DIFFE RENTI AL/PL ATELE T baso (absolute) 0.0 x10e3 /uL 0.0-0. 2 normal Not Available [facility] ([facility]) [address] [place], [address], 05/06/2024 06:05:23 05/05/20 24 05/06/2024 CBC WITH DIFFE RENTI AL/PL ATELE T immature granulocytes 0 % not estab. Not Available [facility] ([facility]) [address] [facility], [place], [address], 05/06/2024 06:05:23 05/05/20 24 05/06/2024 CBC WITH DIFFE RENTI AL/PL ATELE T immature grans (abs) 0.0 x10e3 /uL 0.0-0. 1 Not Available [facility] ([facility]) [address] [facility], [place], [address], 05/06/2024 06:05:23 05/05/20 24 05/06/2024 CBC WITH DIFFE RENTI AL/PL ATELE T NRBC DESIGN INTERN Not Available [facility] ([facility]) [address] [facility], [place], [address], 05/06/2024 06:05:23 05/05/20 24 05/06/2024 CBC WITH DIFFE RENTI AL/PL ATELE T hematology comments: DESIGN INTERN Not Available [facility] ([facility]) [address] [facility], [place], [address], 05/06/2024 06:05:23 05/05/20 24 05/06/2024 SEDIM ENTAT ION RATE- WESTE RGREN sedimentatio n rate-westerg summer 14 mm/HR 0-40 normal Not Available [facility] ([facility]) [address] [facility], [place], [address], 05/06/2024 06:05:24 05/05/20 24 05/06/2024 C-GERONIMO CTIVE PROTE IN, QUANT C-reactive protein, quant 8 mg/L 0-10 normal Not Available [facility] ([facility]) [address] [facility], [place], [address], 05/06/2024 06:05:25 04/22/20 24 04/22/2024 XR, knee, 3 view [email or web address] ?Encry pted=s hAaTro YD8dLq bEUv6g %2BXZw aYqtaq 0bqfl% 2Fg9IQ a4ajBk vP9nXo QUaueC m3YtLR FvZlgJ JJ8mAn HZtai3 6y8811 AC0Kqb n%2BHV aGiKiQ trMwF INTERFACE [facility] Office [address] [facility] [address], [place], [address], 04/22/2024 14:26:57 04/22/20 24 04/22/2024 XR, knee, 3 view [email or web address]:/ [email or web address] ?Encry pted=s MikeaTro YD8dLq bEUv6g %2BXZw aYqtaq 0bqfl% 2Fg9IQ a4ajBk vP9nXo QUaueC m3YtLR FvZlgJ JJ8mAn HZta3 3o2943 AC0Kqb n%2BHV aGiKiQ trMwF INTERFACE [facility] [address] [facility] [address], [place], [address], 04/22/2024 14:26:59 Result Notes Documentation Provider Name and Address Organization Details Recorded Time Xr, Knee, 3 View : [email or web address] Encrypted=wjSkSseQS8nMmbU Uv6g%5LGNknKesby5meps%2Fg 6PCj1wgVhzI1fJtFHnmqFc3No EZIlLmeOEP8cKxVOghb26m088 9AB3Uwzo%2BHVaGiKiQtrMwF Not Available [facility] 04/22/2024 14:2 6:57 Xr, Knee, 3 View : [email or web address] Encrypted=odLnFfwPE3xBxyN Uv6g%4HPYjgSwkfx4fgut%2Fg 0RSx7qgGioM4fGaYQxkvEi6Bf EGMoSpxAQX0eSqZJimj62s982 1KI8Imzy%2BHVaGiKiQtrMwF Not Available [facility] 04/22/2024 14:2 6:59 Problems Name Problem SNOMED Code Status Onset Date Resolution Date Notes Provider Name and Address Organization Details Recorded Time Pain of right knee joint [id number] Active 2023 Maria Elena tucker [facility] 08:44:25 Problem Notes None recorded. Procedures Surgical History Date Name Laterality Status Provider Name and Address Organization Details Recorded Time 4 04774 Therapeutic Exercise (1:1) completed Priya Brice, JESUS MANUELT [address], [place], [address], [facility] 03/22/2024 20:20:07 4 42043: Manual therapy completed Priya Brice DPT [address], [place], [address], [facility] 03/22/2024 20:20:07 4 46708 Therapeutic Exercise (1:1) completed Priya Brice DPT [address], [place], [address], [facility] 03/21/2024 07:51:42 4 87163: Manual therapy completed JESUS MANUEL AlcocerT [address], [place], [address], [facility] 03/21/2024 07:51:42 4 94161 Therapeutic Exercise (1:1) cancelled Nadine Cho PTA [address], [place], [address], [facility] 03/17/2024 17:41:28 4 98482: Manual therapy cancelled Nadine Cho PTA [address], [place], [address], [facility] 03/17/2024 17:41:29 4 30820 Therapeutic Exercise (1:1) completed Priya Brice DPT [address], [place], [address], [facility] 03/16/2024 08:25:05 10679: Manual therapy completed Priya Brice DPT [address], [place], [address], [facility] 03/16/2024 08:25:05 59306 Therapeutic Exercise (1:1) completed Priya Brice DPT [address], [place], [address], [facility] 03/13/2024 19:50:51 67212: Manual therapy completed Priya Brice DPT [address], [place], [address], [facility] 03/13/2024 19:50:51 23352 Therapeutic Exercise (1:1) completed Priya Brice DPT [address], [place], [address], [facility] 03/08/2024 12:09:42 88771: Manual therapy completed Priya Brice DPT [address], [place], [address], [facility] 03/08/2024 12:09:42 85819 Therapeutic Exercise (1:1) completed Priya Brice DPT [address], [place], [address], [facility] 03/04/2024 09:26:34 18335: Manual therapy completed Priya Brice DPT [address], [place], [address], [facility] 03/04/2024 09:26:34 47702 Therapeutic Exercise (1:1) completed Levy Johnson DPT [address], [place], [address], [facility] 03/02/2024 12:58:26 69104: Manual therapy completed JESUS MANUEL McelroyT [address], [place], [address], [facility] 03/02/2024 12:58:29 75162 Therapeutic Exercise (1:1) completed Ab Llanes PTA [address], [place], [address], [facility] 02/25/2024 14:29:02 99303 Therapeutic Exercise (1:1) completed Ab Llanes PTA [address], [place], [address], [facility] 02/23/2024 14:40:38 95666: Manual therapy completed Ab Llanes PTA [address], [place], [address], [facility] 02/23/2024 14:31:27 06701 Therapeutic Exercise (1:1) completed Ab Llanes PTA [address], [place], [address], [facility] 02/17/2024 12:42:40 42497 Therapeutic Exercise (1:1) completed Ab Llanes PTA [address], [place], [address], [facility] 02/15/2024 12:00:56 71047: Manual therapy completed Ab Llanes PSYCHIATRY ADULT PHYSICIAN [address], [place], [address], [facility] 02/15/2024 12:00:56 27892 Therapeutic Exercise (1:1) completed JESUS MANUEL AlcocerT [address], [place], [address], [facility] 02/10/2024 14:14:23 98592: Manual therapy completed Priya Brice, DPT [address], [place], [address], [facility] 02/10/2024 14:14:27 4 77455 Therapeutic Exercise (1:1) completed Priya Brice, DPT [address], [place], [address], [facility] 02/08/2024 13:32:31 4 47385: Low complexity PT Eval completed Priya Brice, DPT [address], [place], [address], [facility] 02/08/2024 13:32:33 4 73659 Therapeutic Exercise (1:1) completed Priya Brice, DPT [address], [place], [address], [facility] 01/13/2024 21:15:49 4 87100: Low complexity PT Eval completed Priya Brice, DPT [address], [place], [address], [facility] 01/13/2024 21:15:51 Imaging Results None recorded. Procedure Notes None recorded. Medical Equipment None Reported. Allergies No known drug allergies Medications Name Sig Start Date Stop Date Status Note LastModified by Organization Details LastModified Time celecoxib 200 mg capsule TAKE 1 CAPSULE BY MOUTH EVERY DAY active Not Available Not Available No t Available amoxicillin 500 mg capsule TAKE 1 CAPSULE BY MOUTH EVERY 8 HOURS UNTIL ALL TAKEN active Not Available Not Available No t Available meloxicam 15 mg tablet Take 1 tablet every day by oral route with meal(s). active Not Available Not Available No t Available lisinopril 20 mg tablet TAKE 1 TABLET BY MOUTH DAILY active Not Available Not Available Not Available amlodipine 5 mg tablet TAKE 1 TABLET BY MOUTH DAILY active Not Available Not Available Not Available tramadol 50 mg tablet TAKE 1 TO 2 TABLETS BY MOUTH EVERY 6 HOURS NEEDED FOR MILD PAIN. DO NOT EXCEED 8 TABLETS (400MG) PER DAY. active Not Available Not Available No t Available aspirin 325 mg tablet,delay ed release TAKE 1 TABLET BY MOUTH TWO TIMES A DAY active Not Available Not Available Not Available pantoprazole 40 mg tablet,delay ed release TAKE 1 TABLET BY MOUTH EVERY DAY active Not Available Not Available No t Available docusate sodium 100 mg capsule TAKE 1 CAPSULE BY MOUTH TWO TIMES A DAY NEEDED FOR CONSTIPATIO N active Not Available Not Available No t Available gabapentin 300 mg capsule TAKE 1 CAPSULE BY MOUTH EVERY DAY AT BEDTIME active Not Available Not Available No t Available diclofenac sodium 75 mg tablet,delay ed release TAKE 1 TABLET BY MOUTH TWICE DAILY DIRECTED active Not Available Not Available No t Available oxycodone 5 mg tablet TAKE 1 TABLET BY MOUTH EVERY 6 HOURS FOR 7 DAYS NEEDED FOR PAIN active Not Available Not Available No t Available cholecalcife rol (vitamin D3) 25 mcg (1,000 unit) capsule TAKE 1 CAPSULE BY MOUTH EVERY DAY active Not Available Not Available No t Available diclofenac 1 % topical gel APPLY 1 GRAM TOPICALLY TO THE AFFECTED AREA 3 TO 4 TIMES PER DAY active Not Available Not Available No t Available Vitals Date Recorded Body height Body mass index (BMI) Body weight Provider Name and Address Organization Details Last Updated DateTime 06/06/2024 154.94 cm 40.6 kg/m2 92257.36 g Perlitamichelle Agrawal [facility] 06/06/2024 13:17:22 Date Recorded Body height Provider Name an d Address Organization Details Last Updated DateTime 08/16/2024 154.94 cm MARIA ELENA HERRERA [facility] 08/16/2024 09:06:10 Date Recorded Body height Provider Name an d Address Organization Details Last Updated DateTime 03/22/2024 154.94 cm YEMI MEDLEY [facility] 03/22/2024 12:17:34 Date Recorded Body height Body mass index (BMI) Body weight Provider Name and Address Organization Details Last Updated DateTime 04/22/2024 154.94 cm 40.4 kg/m2 91349.77 g Maria Elena El [facility] 04/22/2024 14:09:59 Social History Question Answer Notes LastModified by Organizat ion Details LastModified Time Tobacco Smoking Status Never Smoker ERX tucker [facility] 03/07/2024 08:12:56 What Is Your Relationship Status? [email or web address] Information not available 03/07/2024 Sex: Unknown Functional Status Question Answer Note LastModified by Organizat ion Details LastModified Time Do you use any illicit or recreational drugs? No Information not available 03/07/2024 Do you or have you ever used any other forms of tobacco or nicotine? No Information not available 03/07/2024 What is your level of alcohol consumption? None Information not available 03/07/2024 Mental Status None recorded. Family History Nothing Reported. Medical History Condition Response Allergies/Hayfever N Coronary Artery Disease N Anxiety/Depression N Breathing or lung disorders N Emphysema N Nerve Disorders N Thyroid Problems N COPD N Pacemaker N Anemia N Kidney/Bladder Problems N Vascular Disease N Heart Trouble N Heart Attack (NC) N Gastrointestinal Disease N Cholesterol N Diabetes N Autoimmune disease N Bleeding Disorder N Inflammatory Joint disease N Orthotics N Arthritis N Seizures/Epilepsy N Blood Clot N AIDS/HIV N Congestive Heart Failure (CHF) N Acid Reflux (GERD) N Cancer N Stroke N Asthma N Circulation Problems N Peripheral Vascular Disease N Sleep Apnea N Hepatitis N Heart Disease N Rheumatoid Arthritis N Arrhythmia N Pulmonary Embolism N Headaches N Fibromyalgia N Hypertension N Osteoporosis N Gynecological HistoryNo gynecological history recorded. Obstetrics History GPAL:G 0 P 0 0 0 0 Past Encounters Encounter ID Performer Location Encounter Start Date Encounter Closed Date Diagnosis/Indication Diagnosis SNOMED-CT Code Diagnosis ICD10 Code Diagnosis IMO Codes Diagnosis Note [id number] ANTONIO Vora [address] [facility] [place] [address] 09/24/2023 09:39:08 10/20/2023 08:45:46 Pain of bilateral knee joints 9950080154 55735 M25.561 M25.562 Bilateral osteoarthritis of knees 4002685342 48552 M17.0 [id number] ANTONIO Celaya [address] [place] [address] 10/29/2023 08:48:07 11/30/2023 09:35:56 Bilateral osteoarthritis of knees 9755993782 24748 M17.0 [id number] MD Eb [facility] [address] [place] [address] 12/01/2023 11:11:12 12/21/2023 09:20:45 Osteoarthritis of right knee joint 9715785345 69678 M17.11 [id number] Priya Brice, DPT [facility] [address] [place] [address] 01/13/2024 17:48:40 01/14/2024 06:41:50 Osteoarthritis of knee 871250122 M17.11 [id number] Nena Al, BAT LATHE OPERATOR [facility] [address] [place] [address] 01/14/2024 10:50:21 02/10/2024 04:07:39 Osteoarthritis of right knee joint 8127914631 82895 M17.11 [id number] Priya Brice, DPT [facility] [address] [place] [address] 02/08/2024 12:14:33 02/08/2024 13:09:37 History of right total knee replacement 9024836037 604624 Z96.651 Z47.1 [id number] Priya Brice, DPT [facility] [address] [place] [address] 02/10/2024 11:47:28 02/10/2024 12:22:59 History of right total knee replacement 9875004931 273184 Z96.651 Z47.1 [id number] Robin Cullen PA-C [facility] [address] [place] [address] 02/11/2024 08:38:19 02/26/2024 13:10:10 Pain of right knee joint 1094652039 27284 M25.561 Osteoarthr itis of knee 777177725 M17.9 [id number] Ab Llanes, PSYCHIATRY ADULT PHYSICIAN [facility] [address] [place] [address] 02/15/2024 11:54:28 02/15/2024 12:47:18 History of right total knee replacement 5998887452 649817 Z96.651 Z47.1 [id number] Ab Llanes, PSYCHIATRY ADULT PHYSICIAN [facility] [address] [place] [address] 02/17/2024 11:51:44 02/17/2024 13:23:11 History of right total knee replacement [id number] Z96.651 Z47.1 [id number] Ab Llanes, PSYCHIATRY ADULT PHYSICIAN [facility] [address] [place] [address] 02/23/2024 13:56:15 02/23/2024 16:38:02 History of right total knee replacement [id number] 801497 Z96.651 Z47.1 [id number] Ab Llanes, PSYCHIATRY ADULT PHYSICIAN [facility] [address] [place] [address] 02/25/2024 13:54:23 02/25/2024 15:08:15 History of right total knee replacement [id number] Z96.651 Z47.1 [id number] JESUS MANUEL McelroyT [facility] [address] [place] [address] 03/02/2024 11:45:45 03/02/2024 13:34:00 History of right total knee replacement [id number] Z96.651 Z47.1 [id number] Priya Brice DPT [facility] [address] [place] [address] 03/07/2024 08:29:13 03/07/2024 09:28:02 History of right total knee replacement [id number] [id number] Z96.651 Z47.1 [id number] Ed Mercado MD [facility] [address] [place] [address] 03/07/2024 11:35:02 03/30/2024 15:41:41 History of total knee arthroplasty [id number] 105 Z96.651 [id number] Priya Brice DPT [facility] [address] [place] [address] 03/09/2024 11:25:29 03/09/2024 12:20:16 History of right total knee replacement [id number] Z96.651 Z47.1 [id number] Priya Cheston, DPT [facility] [address] [place] [address] 03/14/2024 15:06:28 03/14/2024 16:39:36 History of right total knee replacement [id number] 297151 Z96.651 Z47.1 [id number] Priya Brice, DPT [facility] [address] [place] [address] 03/16/2024 14:25:30 03/16/2024 16:13:04 History of right total knee replacement [id number] Z96.651 Z47.1 [id number] Priya Brice, DPT [facility] [address] [place] [address] 03/21/2024 11:47:46 03/21/2024 12:40:55 History of right total knee replacement [id number] 056180 Z96.651 Z47.1 [id number] Ed Mercado MD [facility] [address] [place] [address] 03/22/2024 12:08:42 04/18/2024 13:07:47 History of total knee arthroplasty [id number] 105 Z96.651 [id number] Priya Brice, DPT [facility] [address] [place] [address] 03/23/2024 11:53:36 03/23/2024 12:55:53 History of right total knee replacement [id number] 004286 Z96.651 Z47.1 [id number] Pierce Shepard PA-C [facility] [address] [place] [address] 04/22/2024 14:01:28 05/19/2024 07:35:36 History of right total knee replacement [id number] Z96.651 [id number] Pierce Shepard PA-C [facility] - [facility] [address] [place] [address] 06/06/2024 12:42:49 06/23/2024 14:36:34 History of total knee arthroplasty [id number] 105 Z96.651 [id number] History of right total knee replacement [id number] [id number] Z96.651 [id number] ANTONIO Faith [address] [place] [address] 08/16/2024 08:28:47 08/31/2024 08:20:30 History of right total knee replacement [id number] 745511 Z96.651 [id number] Health Concerns Section Related Observation LastModified by Organization Detai ls LastModified Time None Recorded Concern Status LastModified by Organization Details LastModified Time None Recorded Advance Directives Directive None Recorded Payers Insurance Date Sequence Insurance Name Policy Number Policy Iverson Covered Member ID Iverson Member ID Guarantor Name 02/09/2024 1 [facility] - DOS ON OR AFTER 2022 - ONE CARE (MEDICARE REPLACEMENT/A DVANTAGE - HMO) Missy Bean [id number] Missy Bean 08/13/2024 1 MEDICAID-[facility] (MEDICAID) Missy Bean [id number] Missy Bean Notes Date Note Type Note Provider Name and Address Organization Details Recorded Time 03/23/2024 text/html Patient reports that she had her follow up with the doctor yesterday and that it went well. He is much happier with her increase in ROM. Priya Brice, DPT [address] [facility] [address], [place], [address], [facility] 03/23/2024 13:41:01 04/22/2024 text/html ROS as noted in the HPI I am seeing the patient today under the supervision of Dr. Balderas who was available but who did not see the patient. HPI:Patient is a 59-year-old female with a history of a right total knee replacement on 01/26/[address] Xiao. Patient presents today for pain in her right knee. Has been having pain continuous since surgery. Has not had any recent injuries or falls. Has had increased swelling in her knee. Has difficulty with ambulatory activities. Has pain with sleeping at night. Denies any instability. Has been only been utilizing Tylenol for pain relief. Has not been utilizing any anti-inflammatory medications. Denies any fevers, chills or any other constitutional symptoms. Past family, medical, social history and review of systems has been reviewed, updated and is located in the patient s chart. Examination: Well-appearing 59-year-old female in no acute distress. She is alert and oriented x 3. Ambulates with a slightly antalgic gait. Right knee reveals a well-healed surgical incision. There is no erythema or ecchymosis noted. Small amount of swelling noted surrounding the knee. There is very slight warmth to touch. No significant increasing tenderness to palpation throughout the knee. Range of motion from 0-110 degrees. Knee is stable to both valgus and varus stress testing. Knee strength 4/5 against resistance with flexion and extension. Calf is soft and nontender. 3 views of the right knee obtained and independently reviewed in the office today reveal right total knee arthroplasty in good alignment. No evidence of any osteolysis or loosening. Patella is tracking centrally. No fracture. X-rays unchanged from previous. Impression:Right total knee placement pain Plan:Patient does have some swelling as well as warmth to touch of her knee which could just be normal at this point but in order to help rule out infection we did discuss getting labs drawn. Order placed today and patient will go in the next couple of days. It is not urgent at this point since she has had fairly similar pain since surgery. Did discuss continuing with Tylenol as well as adding an anti-inflammatory medication which the patient was agreeable to. Given a prescription today for diclofenac 75 mg to take twice a day with food. Patient provided with a work note today. I will see the patient back in the office in the upcoming weeks. I did discuss with her that if the lab findings are concerning I would have her come back sooner for possible aspiration. Patient agreeable today. At this time all patient questions and concerns answered today. Pierce Shepard PA-C [address] [facility] [address], [place], [address], [facility] 05/03/2024 10:41:44 06/06/2024 text/html ROS as noted in the HPI I am seeing the patient today under the supervision of Dr. Patino who was available but who did not see the patient. HPI:Patient is a 59-year-old female with a history of a right total knee replacement by Dr. Xiao approximately 4 months ago. Presents today for recheck of her right knee. Previously seen the patient about 6 weeks ago for her right knee. She is essentially had continuous pain in her knee since surgery. 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 Has previously been given diclofenac 75 mg to take twice a day which she has continued and states that this has not provided her with much relief. Denies any instability in the knee. Denies any fevers, chills or any other constitutional symptoms. She did have previous labs drawn which were all within normal limits. Past family, medical, social history and review of systems has been reviewed, updated and is located in the patient s chart. Examination: Well-appearing 59-year-old female in no acute distress. She is alert and oriented x 3. Ambulates with a symmetric gait. Right knee reveals a well-healed surgical incision. There is no erythema, warmth, ecchymosis, swelling noted. Patient has tenderness to palpation over the lateral aspect of the knee into the lateral aspect of the tibia. Range of motion from 0-110 degrees. Does have increasing discomfort at the endpoint of flexion. Knee is stable to both valgus and varus stress testing. Knee strength 4/5 against resistance with flexion and extension. Calf is soft and nontender. Previous 3 views of the right knee reviewed in PACS reveal right total knee arthroplasty in good alignment. No evidence of any osteolysis or loosening. Patella is tracking centrally. No fractures noted. Impression:Continued right total knee replacement pain Plan:At this point and wondering if the patient is experiencing more nerve related pain. She has tried anti-inflammatories for the last 6 weeks which have not provided her with significant relief. We did discuss trying nerve pain medication with gabapentin 300 mg which she will take once daily at night. Patient was agreeable to this today. Prescription sent to her pharmacy. She will continue with strengthening of the knee. 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 I will see the patient back in the office in about 10 weeks for recheck. If things get worse or change she will come back sooner. Patient's labs are normal. No concerning signs for infection on physical examination or laboratory findings today. Patient agrees with this treatment plan. At this time all patient questions and concerns answered today. Pierce Shepard PA-C [address] [facility] [address], [place], [address], [place] [facility] 06/06/2024 13:40:05 08/16/2024 text/html ROS as noted in the HPI I am seeing the patient today under the supervision of Dr. Balderas who was available but who did not see the patient. HPI: 59-year-old female with previous history of right total knee replacement by Dr. Xiao about 7 months ago. Has continued to experience pain in her knee. Previously given prescription for gabapentin since it seems like she was having more nerve related pain on the lateral aspect of her knee. She did try the gabapentin but states she did not like how it made her feel so she stopped it. Has been utilizing tramadol and oxycodone prescribed by her primary care physician which does not seem to alleviate a lot of her symptoms. Previously had labs drawn which were unremarkable with no concerning signs for infection. Has difficulty primarily with ambulatory activities. Past family, medical, social history and review of systems has been reviewed, updated and is located in the patient s chart. Examination: Well-appearing 59-year-old female in no acute distress. Alert and oriented x 3. Utilizing cane for ambulatory support. Right knee reveals a well-healed surgical incision. No erythema, warmth, ecchymosis, swelling noted. Tenderness over the lateral aspect of the knee. No medial sided tenderness. Range of motion from 0-100 degrees. Knee is stable to valgus and varus stress testing. Knee strength 4/5 against resistance with flexion and extension. Calf is soft and nontender. Impression:Right total knee replacement pain Plan:At this point it seems like the patient is experiencing more soft tissue irritation/nerve related pain on the lateral aspect of her knee. Physical exam is essentially benign and radiographic findings from previous are normal. We we ultimately discussed today that she would benefit from continued home exercise program as well as possible anti-inflammatory medications. Patient states that she does want to take anti-inflammatories but is willing to try topical medications. She was given prescription for Voltaren gel today to apply the affected area 3-4 times a day. She will continue with her oxycodone as well as tramadol as needed. Ultimately will continue to see progress as she gets closer to a year from recovery. Her next appointment will be with Dr. Xiao at the 1 year margret unless things change. Patient agrees with this treatment plan. At this time with patient questions and concerns were answered today. Pierce Shepard PA-C [address] [place] [address] [address], [place], [address], [facility] 08/16/2024 17:44:13 OBGyn Episode No OBEpisode recorded.
== END 2025-04-04 11:42 | disposition home or self-care (01) ==
LOC: HO.HSMS 10:53
PROVIDERS: PCP Physician Assistant Medical; Visit Provider Physician Assistant Medical
DX: G47.33 Obstructive sleep apnea (adult) (pediatric) (principal); R26.81 Unsteadiness on feet; R53.83 Other fatigue; G47.9 Sleep disorder, unspecified; R06.83 Snoring
CPT/HCPCS: 99214

== ENCOUNTER → 2025-04-04 10:52 | Outpatient (BNVA) | payer MEDICAID, SELFPAY | PROVIDERS: PCP Physician Assistant Medical; Visit Provider Physician Assistant Medical | DX: G47.33 Obstructive sleep apnea (adult) (pediatric) (principal); R26.81 Unsteadiness on feet; R53.83 Other fatigue; R06.83 Snoring; Z99.89 Dependence on other enabling machines and devices | CPT/HCPCS: 99212 ==